=== PATIENT | female | born 1945 | race Caucasian/White ===

== ENCOUNTER 2020-04-28 12:42 | Outpatient (CLI) | payer MEDICARE | END 2020-04-28 12:43 | disposition critical access hospital (66) | LOC: EMS 12:42 | PROVIDERS: ATTEND Surgery | DX: M25.551 Pain in right hip (principal); R10.31 Right lower quadrant pain | CPT/HCPCS: A0425; A0427 ==

== ENCOUNTER 2020-04-28 13:20 | Emergency (ER) | payer MEDICARE ==
[2020-04-28] MEDS ORDERED: fentaNYL 100 MCG/2 ML VIAL IVP STA ×3 (13:59→17:58)
--- NOTE | 2020-04-28 14:00 | ED Physician Documentation ---
History of Present Illness - Stated complaint Stated Complaint: HIP PX - Chief complaint Chief Complaint: Ext Problem - History obtained from History obtained from: Patient - History of Present Illness Timing: Prior to arrival, How many hours ago (2) Pain level max: 10 Pain level now: 7 - Additonal information Additional information: 74-year-old female presents to the emergency department with chief complaint of right hip pain. Patient reports that she was ambulating to the bathroom with a walker as she was in the bathroom attempting to sit on the seat she twisted then felt a pop in her right hip and could not bear weight. She fell onto the toilet. She was unable to stand on her own or bear weight in the hip afterwards. Since the injury the hip has been held in external rotation.Patient reports that she has had bilateral hip replacements approximately 18 years ago.She also reports a history of severe osteoarthritis with "[id number] in the right knee." Review of Systems Constitutional: denies: Fever, Chills Cardiac: denies: Chest pain / pressure Respiratory: denies: Dyspnea : denies: Dysuria, Frequency, Hesitancy Skin: denies: Rash, Lesions Musculoskeletal: reports: Extremity pain, Joint pain, Pain with weight bearing PD PAST MEDICAL HISTORY - Allergies Allergies/Adverse Reactions: Allergies Allergy/AdvReac Type Severity Reaction Status Date / Time codeine Allergy Nausea Verified 04/28/20 13:28 Penicillins Allergy Rash Verified 04/28/20 13:28 PD ED PE EXPANDED - General General: No acute distress, Well developed/nourished, Other (morbidely obese) - Cardiac Cardiac: Regular Rate, Radial strong equal, Femoral strong equal - Respiratory Respiratory: Clear to ausultation [place] - Abdomen Abdomen: Normal Bowel sounds (No tenderness elicited) - Extremities Extremities: Right hip (Right hip held in external rotation. Patient is unable to elevate the leg at the hip internally rotate hip. She has normal dorsi and plantar flexion of the distal foot. 2+ distal DP pulse.) Results - Vitals Vitals: Vital Signs - 24 hr 04/28/20 04/28/20 04/28/20 13:28 13:34 15:49 Temperature 36.9 C 36.9 C 37.1 C Heart Rate 100 100 98 Respiratory 16 16 16 Rate Blood Pressure 160/80 H 160/80 H 173/88 H O2 Saturation 96 96 97 04/28/20 04/28/20 17:43 19:08 Temperature 36.9 C 36.9 C Heart Rate 103 H 99 Respiratory 16 20 Rate Blood Pressure 179/99 H 176/65 H O2 Saturation 96 98 Oxygen O2 Source Room air - Labs Labs: Laboratory Tests 04/28/20 04/28/20 04/28/20 14:48 14:48 17:00 WBC 9.6 RBC 3.52 L Hgb 9.9 L Hct 31.6 L MCV 89.8 MCH 28.1 MCHC 31.3 L RDW 14.9 Plt Count 339 MPV 9.6 Neut # (Auto) 7.7 H Lymph # (Auto) 0.9 L [place] # (Auto) 0.8 Eos # (Auto) 0.1 Baso # (Auto) 0.1 Absolute Nucleated RBC 0.00 Nucleated RBC % 0.0 Sodium 133 L Potassium 4.1 Chloride 99 L Carbon Dioxide 25 Anion Gap 9.0 BUN 16 Creatinine 0.7 Estimated GFR (MDRD) 82 L Glucose 109 H Calcium 9.1 Total Bilirubin 0.6 AST 14 ALT 13 Alkaline Phosphatase 75 Total Protein 6.5 L Albumin 3.5 Globulin 3.0 Albumin/Globulin Ratio 1.2 Lipase 28 Urine Color YELLOW Urine Clarity CLEAR Urine pH 6.0 Ur Specific [place] 1.010 Urine Protein NEGATIVE Urine Glucose (UA) NEGATIVE Urine Ketones NEGATIVE Urine Occult Blood NEGATIVE Urine Nitrite NEGATIVE Urine Bilirubin NEGATIVE Urine Urobilinogen 0.2 (NORMAL) Ur Leukocyte Esterase NEGATIVE Ur Microscopic Review NOT INDICATED Urine Culture Comments NOT INDICATED - Rads (name of study) Right hip/pelvis: Radiology: Final report received (No fractures or dislocations. Bilateral hip arthritis dual plasty procedures have been performed no evidence of device loosening or disruption. Source of new pain not found) CT abd/pelvis Radiology: Final report received (A definitive cause for right hip pain is not identified multiple small ventral hernias. No findings suggest obstructionDiverticulosis without diverticulitis. Right hepatic nodule) PD MEDICAL DECISION MAKING - ED course Complexity details: reviewed results, re-evaluated patient, considered di fferential, d/w patient, d/w family ED course: 74-year-old female presents to the emergency department with chief complaint of acute right hip pain after attempting to sit on a toilet. She felt a twisting sensation and a pop. She does have a history of previous bilateral hip replacement.She is unable to bear weight in the hip. - X-ray of the hip showed no dislocation or fracture. However despite multiple doses of pain medication and a muscle relaxer patient remained unable to internally rotate her hip or even elevate her leg. A CT scan of the abdomen and pelvis was performed in order to evaluate for possible occult's inguinal hernia or other incarceration. No etiology found. Therefore a full femur xray was completed which showed a distal right femur fracture. - Dr. Stoll of orthopedics has consulted. In his evaluation, [facility] does not have the capacity or ability to treat this type of fracture or manage in the [facility] as it is complicated and likely requires associated repair of the knee/osteoarthritis - Patient has been accepted for transfer to [facility] under the orthopedic service. Accepting physician is Dr. Josue Roy. - Pt will be send via [facility] given length of time for transport and need for cardiac monitoring and likely analgesia while enroute. - Consults Consults: Consulted (name) (Dr. Luis Stoll), Discussed case with (Dr. Cliff Stoll ) Departure - Departure Disposition: 66 [facility] DC/Xfer Clinical Impression: Femur fracture, right Qualifiers: Encounter type: initial encounter Femur location: distal, unspecified portion Fracture type: closed Fracture morphology: unspecified fracture morphology Qualified Code(s): S72.401A - Unspecified fracture of lower end of right femur, initial encounter for closed fracture Condition: Stable
--- NOTE | 2020-04-28 14:35 | XRAY Report ---
PROCEDURE: Hip w/Pelvis 2-3V RT INDICATIONS: PAIN IN HIP/ HELP IN EVERSION. FX VS DIS TECHNIQUE: AP pelvis with lateral view(s) of the bilateral hip(s). COMPARISON: None. FINDINGS: Bones: No fractures or dislocations. Note is made of bilateral hip arthroplasty devices without evid ence of device loosening or disruption. Pelvic ring appears intact. No suspicious bony lesions. Soft tissues: The visualized bowel gas pattern is normal. No suspicious soft tissue calcifications. IMPRESSION: No trauma found, bilateral hip arthroplasty procedures have been performed, no evidence of device loosening or disruption. Source of new pain is not found. Reviewed by: Sukhjinder Ritter MD on 04/28/2020 2:34 PM PDT Approved by: Sukhjinder Ritter MD on 04/28/2020 2:34 PM PDT Station ID: [id number]
[2020-04-28 14:55] LABS: BASOPHILS # (AUTO) 0.1 10^3/uL (0.0-0.1); BASOPHILS % (AUTO) 0.5 %; EOSINOPHILS # (AUTO) 0.1 10^3/uL (0.0-0.7); EOSINOPHILS % (AUTO) 1.1 %; HGB - HEMOGLOBIN 9.9 g/dL (12.0-16.0); LYMPHOCYTES # (AUTO) 0.9 10^3/uL (1.5-3.5); LYMPHOCYTES % (AUTO) 9.1 %; MEAN CORPUSCULAR HEMOGLOBIN 28.1 pg (27.0-31.0); MEAN CORPUSCULAR HGB CONC 31.3 g/dL (32.0-36.0); MEAN CORPUSCULAR VOLUME 89.8 fL (81.0-99.0); MEAN PLATELET VOLUME 9.6 fL (7.9-10.8); MONOCYTES # (AUTO) 0.8 10^3/uL (0.0-1.0); MONOCYTES % (AUTO) 8.6 %; NEUTROPHILS # (AUTO) 7.7 10^3/uL (1.5-6.6); NEUTROPHILS % (AUTO) 80.2 %; PLT - PLATELET COUNT 339 10^3/uL (130-450); RED BLOOD COUNT 3.52 10^6/uL (4.20-5.40); RED CELL DISTRIBUTION WIDTH 14.9 % (12.0-15.0); WHITE BLOOD COUNT 9.6 x10^3/uL (4.8-10.8)
[2020-04-28 15:07] LABS: ALBUMIN 3.5 g/dL (3.2-5.5); ALBUMIN/GLOBULIN RATIO 1.2 (1.0-2.2); BILIRUBIN,TOTAL 0.6 mg/dL (0.2-1.0); CALCIUM 9.1 mg/dL (8.5-10.3); CREATININE 0.7 mg/dL (0.4-1.0); TOTAL PROTEIN 6.5 g/dL (6.7-8.2)
[2020-04-28] MEDS ORDERED: IOVERSOL 320 100 ML VIAL IVP ONE ×2 (15:13→16:19)
--- NOTE | 2020-04-28 15:54 | CT Report ---
PROCEDURE: Abdomen/Pelvis W INDICATIONS: right hip pain; unable to bear weight; ? hernia CONTRAST: IV CONTRAST: Optiray 320 ml: 100 PO CONTRAST: *NO PO CONTRAST TECHNIQUE: After the administration of oral and intravenous contrast, 5 mm thick sections acquired from the diap hragms to the symphysis. 5 mm thick coronal and sagittal reformats were acquired. For radiation dos e reduction, the following was used: automated exposure control, adjustment of mA and/or kV accordin g to patient size. COMPARISON: None. FINDINGS: Image quality: Excellent. ABDOMEN: Lung bases: Lung bases are clear. Heart size is normal. Solid organs: There is a 1.5 x 1.7 cm low-density nodule in the posterior segment of the right hepat ic lobe. Liver and spleen are normal in size and enhancement. Gallbladder is surgically absent Bili sabas system is non dilated. Pancreas enhances normally. No adrenal nodules. Kidneys demonstrate nor mal size and enhancement, without hydronephrosis. Peritoneum and bowel: There are multiple surgical clips in the left upper quadrant. There are [place] us colonic diverticula. No CT findings to suggest acute diverticulitis. Normal appendix. A moderate a mount of stool in colon. Bowel loops demonstrate normal wall thickness and caliber. No free fluid or air. Nodes and vessels: No retroperitoneal or mesenteric adenopathy by size criteria. Aorta and inferior vena cava are normal in size. Miscellaneous: There are a couple of small ventral hernias. PELVIS: Pelvis is partially obscured by metallic artifacts from bilateral hip prosthesis. Genitourinary: Bladder wall thickness is normal. Bilateral ovarian cysts. There is a 4 cm cyst in t he left ovary and a 3 cm cyst in the right ovary. Miscellaneous: No inguinal hernias or adenopathy. Bones: No suspicious bony lesions. No vertebral body compression fractures. Mild scoliosis. Severe degenerative disc and facet disease in lumbar spine. IMPRESSION: 1. Small ventral hernias. No findings to suggest bowel obstruction. 2. Diverticulosis without acute diverticulitis. 3. A 1.5 x 1.7 cm indeterminate low density nodule in the posterior segment of the right hepatic lobe . An ultrasound is suggested as initial follow-up evaluation. 4. Bilateral ovarian cysts. Follow-up pelvic ultrasound is suggested. 5. Pelvises partially obscured by external metallic artifacts from bilateral hip procedures. 6. A definitive cause for right hip pain is not identified on this CT. 7. Severe degenerative changes in lumbar spine. Reviewed by: Dorcas Vasquez MD on 04/28/2020 3:53 PM PDT Approved by: Dorcas Vasquez MD on 04/28/2020 3:53 PM PDT Station ID: [id number]
[2020-04-28] MEDS ORDERED: diazePAM INJ 5 MG/ML SYRINGE IM STA (15:56)
[2020-04-28] MEDS ORDERED: diazePAM INJ 5 MG/ML SYRINGE IVP STA (16:09)
[2020-04-28 17:17] LABS: BILIRUBIN,URINE NEGATIVE (NEGATIVE); CLARITY,URINE CLEAR (CLEAR); GLUCOSE, URINE (UA) NEGATIVE (NEGATIVE); KETONES,URINE (UA) NEGATIVE (NEGATIVE); LEUKOCYTE ESTERASE, URINE NEGATIVE (NEGATIVE); NITRITE,URINE NEGATIVE (NEGATIVE); OCCULT BLOOD,URINE NEGATIVE (NEGATIVE); PROTEIN,URINE NEGATIVE (NEGATIVE); UROBILINOGEN,URINE 0.2 (NORMAL) E.U./dL (NORMAL)
--- NOTE | 2020-04-28 18:17 | CONSULTATION NOTE ---
Referring Provider Name of Referring Provider:: AIDE cam Consult Date: 04/28/20 Chief Complaint - Chief Complaint Chief Complaint: pain right upper and lower thigh following fall earlier today History of Present Illness - History Obtained From History obtained from: patient - History of Present Illness HPI Comment/Other: This is a 74-year-old woman who presents with right thigh pain on an acute basis following a fall at home earlier today. She normally uses a walker to ambulate. She went to the bathroom and when attempting to sit her right knee twisted and she fell hard onto the toilet seat. She felt a pop, had immediate pain and was unable to bear weight on her right leg. Most of the pain was in the upper thigh initially but then she had also considerable pain in the distal thigh on the right side. She has a history of bilateral total hip arthroplasties performed approximately 18 years ago. She has had a good outcome with regard to the hip arthroplasties. Most of her problems are related to severe osteoarthritis of both knees. She has difficulty ambulating because of the knee pain that is chronic. Her legs feel weak and she is limited to ambulation to indoors only at home and uses a walker on a full-time basis. She also has a history of obesity. She denies chest pain, shortness of breath, dizziness or loss of consciousness associated with the fall onto the toilet.She denies any pain to the left lower extremity from the fall but does have chronic pain to the left knee as mentioned. She denies upper extremity pain. Meds/Allgy - Allergies Allergies/Adverse Reactions: Allergies Allergy/AdvReac Type Severity Reaction Status Date / Time codeine Allergy Nausea Verified 04/28/20 13:28 Penicillins Allergy Rash Verified 04/28/20 13:28 Review of Systems - All Other Systems All Other Systems: reports: Other (See history of present illness) Exam - Vital Signs Vital Signs: Vital Signs x48h Temp Pulse Resp BP Pulse Ox 04/28/20 17:43 36.9 C 103 H 16 179/99 H 96 04/28/20 15:49 37.1 C 98 16 173/88 H 97 04/28/20 13:34 36.9 C 100 16 160/80 H 96 04/28/20 13:28 36.9 C 100 16 160/80 H 96 - Physical Exam General Appearance: positive: Moderate distress Eyes Bilateral: positive: Normal inspection ENT: positive: ENT inspection nml Neck: positive: Nml inspection Respiratory: positive: Chest non-tender Cardiovascular: positive: Regular rate & rhythm Peripheral Pulses: negative: Other (No vascular compromise to lower extremities) Skin: positive: Color nml, Dry, Other (Skin is intact) Extremities: positive: Other Neurologic/Psychiatric: negative: Other (There is swelling and tenderness to the right distal thigh. Any movement of the right knee is associated with marked pain. Gentle movement of the right hip does not seem to be associated with pain. She presents with morbid obesity, no overt deformity but she does hold the right lower extremity wi) Conclusion and Plan - Lab Results Laboratory Results 04/28/20 17:00: Urine Color YELLOW, Urine Clarity CLEAR, Urine pH 6.0, Ur Specific [place] 1.010, Urine Protein NEGATIVE, Urine Glucose (UA) NEGATIVE, Urine Ketones NEGATIVE, Urine Occult Blood NEGATIVE, Urine Nitrite NEGATIVE, Urine Bilirubin NEGATIVE, Urine Urobilinogen 0.2 (NORMAL), Ur Leukocyte Esterase NEGATIVE, Ur Microscopic Review NOT INDICATED, Urine Culture Comments NOT INDICATED 04/28/20 14:48: Sodium 133 L, Potassium 4.1, Chloride 99 L, Carbon Dioxide 25, Anion Gap 9.0, BUN 16, Creatinine 0.7, Estimated GFR (MDRD) 82 L, Glucose 109 H, Calcium 9.1, Total Bilirubin 0.6, AST 14, ALT 13, Alkaline Phosphatase 75, Total Protein 6.5 L, Albumin 3.5, Globulin 3.0, Albumin/Globulin Ratio 1.2, Lipase 28 04/28/20 14:48: WBC 9.6, RBC 3.52 L, Hgb 9.9 L, Hct 31.6 L, MCV 89.8, MCH 28.1, MCHC 31.3 L, RDW 14.9, Plt Count 339, MPV 9.6, Neut # (Auto) 7.7 H, Lymph # (Auto) 0.9 L, [place] # (Auto) 0.8, Eos # (Auto) 0.1, Baso # (Auto) 0.1, Absolute Nucleated RBC 0.00, Nucleated RBC % 0.0 - Diagnostic Imaging Results Diagnostic Imaging Results: negative: Read independently (The distal femur shows a transverse fracture, supracondylar with the distal fracture fragment angulated in a dorsal direction. The fracture appears to be extra-articular. There is osteopenia. The lateral tibial plateau is depressed and there are degenerative changes to the right knee joint.) - Diagnosis Diagnosis: I have suggested obtaining a CT scan of the right knee to better delineate the fracture and possible fracture to tibial plateau. Because this is a periprosthetic type of fracture, I feel she would best be treated at a tertiary care center as she may need a combination of trauma and reconstructive services including possibility of a total knee replacement and fracture fixation in 1 procedure. Her obesity and osteopenia add additional challenges. I have explained this to the patient and her accompanying family member; they are agreement to being transferred. We are in the process of trying to reach 1 of the major medical centers in the [place] to accept her as a patient.1. Displaced supracondylar right femur fracture, periprosthetic 2. Bilateral total hip arthroplasties 3. Severe osteoarthritis bilateral knees 4. Cannot fully exclude a tibial plateau fracture but I suspect deformity may be due to advanced osteoarthritis of the knee. 5 morbid obesity 6. Debility from age and disuse 7 osteoporosis
--- NOTE | 2020-04-28 18:30 | CONSULTATION NOTE ---
Referring Provider Name of Referring Provider:: AIDE rivers Consult Date: 04/28/20 Meds/Allgy - Allergies Allergies/Adverse Reactions: Allergies Allergy/AdvReac Type Severity Reaction Status Date / Time codeine Allergy Nausea Verified 04/28/20 13:28 Penicillins Allergy Rash Verified 04/28/20 13:28 Exam - Vital Signs Vital Signs: Vital Signs x48h Temp Pulse Resp BP Pulse Ox 04/28/20 17:43 36.9 C 103 H 16 179/99 H 96 04/28/20 15:49 37.1 C 98 16 173/88 H 97 04/28/20 13:34 36.9 C 100 16 160/80 H 96 04/28/20 13:28 36.9 C 100 16 160/80 H 96 Conclusion and Plan - Lab Results Laboratory Results 04/28/20 17:00: Urine Color YELLOW, Urine Clarity CLEAR, Urine pH 6.0, Ur Specific [place] 1.010, Urine Protein NEGATIVE, Urine Glucose (UA) NEGATIVE, Urine Ketones NEGATIVE, Urine Occult Blood NEGATIVE, Urine Nitrite NEGATIVE, Urine Bilirubin NEGATIVE, Urine Urobilinogen 0.2 (NORMAL), Ur Leukocyte Esterase NEGATIVE, Ur Microscopic Review NOT INDICATED, Urine Culture Comments NOT INDICATED 04/28/20 14:48: Sodium 133 L, Potassium 4.1, Chloride 99 L, Carbon Dioxide 25, Anion Gap 9.0, BUN 16, Creatinine 0.7, Estimated GFR (MDRD) 82 L, Glucose 109 H, Calcium 9.1, Total Bilirubin 0.6, AST 14, ALT 13, Alkaline Phosphatase 75, Total Protein 6.5 L, Albumin 3.5, Globulin 3.0, Albumin/Globulin Ratio 1.2, Lipase 28 04/28/20 14:48: WBC 9.6, RBC 3.52 L, Hgb 9.9 L, Hct 31.6 L, MCV 89.8, MCH 28.1, MCHC 31.3 L, RDW 14.9, Plt Count 339, MPV 9.6, Neut # (Auto) 7.7 H, Lymph # (Auto) 0.9 L, [place] # (Auto) 0.8, Eos # (Auto) 0.1, Baso # (Auto) 0.1, Absolute Nucleated RBC 0.00, Nucleated RBC % 0.0
--- NOTE | 2020-04-28 18:37 | XRAY Report ---
PROCEDURE: Femur 2V RT INDICATIONS: r/o fx TECHNIQUE: 4 views of the femur were acquired. COMPARISON: Hip with pelvis same day.. FINDINGS: Bones: No fractures or dislocations superiorly where a femoral arthroplasty is partially visualized and appears intact. More distally at the distal femoral metadiaphyseal junction there is a transverse fracture with fracture angulation ventrally associated with a large suprapatellar joint effusion and this appears acute. Mild comminution. Moderately severe knee joint osteoarthritis is present.. No s uspicious bony lesions. Soft tissues: No suspicious soft tissue calcifications or masses. IMPRESSION: Distal femoral metadiaphyseal junction fracture angulation is present, significantly ventrally angula nichelle with associated large effusion at the suprapatellar bursal space. Reviewed by: Sukhjinder Ritter MD on 04/28/2020 6:35 PM PDT Approved by: Sukhjinder Ritter MD on 04/28/2020 6:35 PM PDT Station ID: [id number]
--- NOTE | 2020-04-28 18:39 | XRAY Report ---
PROCEDURE: Knee 2 View RT INDICATIONS: fracture TECHNIQUE: 2 views of the right knee(s) were acquired. COMPARISON: Right femur plain film same day.. FINDINGS: Bones: No dislocations but there is a ventrally angulated distal right femoral metadiaphyseal junct ion fracture, with associated large ventral joint effusion, and on the frontal view quality of visual ization is quite limited by large body habitus. At least degenerative osteoarthritis of the knee join t is present, near severe medially, and it is not possible to accurately exclude presence of a tibial plateau fracture. No suspicious bony lesions. Soft tissues: No joint effusion. No suspicious soft tissue calcifications. IMPRESSION: Limited quality visualization of the knee joint on the frontal projection, moderately se booker knee joint osteoarthritis is present and a fracture cannot be excluded at the tibial plateau by this study due to very large body habitus. CT scanning may be warranted through this area depending o n the clinical status. Reviewed by: Sukhjinder Ritter MD on 04/28/2020 6:37 PM PDT Approved by: Sukhjinder Ritter MD on 04/28/2020 6:37 PM PDT Station ID: [id number]
[2020-04-28 19:08] VITALS: BP 176/65
[2020-04-28] MEDS ORDERED: fentaNYL 100 MCG/2 ML VIAL IVP PRN (19:20)
--- NOTE | 2020-04-28 19:22 | CT Report ---
PROCEDURE: LOWER EXTREMITY WO - RT INDICATIONS: CT knee: eval tib/fib fx TECHNIQUE: Noncontrast 3 mm axial sections acquired of the , with coronal and sagittal reformats. COMPARISON: Plain film imaging earlier same day documenting distal femoral fracture reviewed.. FINDINGS: Image quality: Excellent. Bones: The previously identified displaced and angulated metadiaphyseal junction fracture involving the distal femur on the right is again noted. The anterior joint effusion associated with this and se en on plain film imaging appears to contain fluid higher in density than water, consistent with hemor rhagic effusion in the setting of trauma. The knee joint shows moderately severe to severe osteoarthr itis best seen at the medial compartment, where near [id number] articulation is present. A tibial p lateau fracture is not found. Soft tissues: No hematoma seen. Presumed hemarthrosis suprapatellar bursa on the right. IMPRESSION: No tibial plateau fracture seen. Moderately severe knee joint osteoarthritis slightly greater at the medial compartment and the lateral compartment. Distal femoral metadiaphyseal junction fracture angul ated and mildly just placed is noted, as was seen on plain film imaging earlier today. Reviewed by: Sukhjinder Ritter MD on 04/28/2020 7:20 PM PDT Approved by: Sukhjinder Ritter MD on 04/28/2020 7:20 PM PDT Station ID: [id number]
== END 2020-04-28 20:24 | disposition short-term general hospital (02) ==
LOC: ED 13:20
DX: S72.451A Displaced supracondylar fracture without intracondylar extension of lower end of right femur, initial encounter for closed fracture (principal); M97.01XA Periprosthetic fracture around internal prosthetic right hip joint, initial encounter; X50.1XXA Overexertion from prolonged static or awkward postures, initial encounter; Y93.E8 Activity, other personal hygiene; Y92.002 Bathroom of unspecified non-institutional (private) residence as the place of occurrence of the external cause; Z96.643 Presence of artificial hip joint, bilateral; M17.0 Bilateral primary osteoarthritis of knee; M81.0 Age-related osteoporosis without current pathological fracture; M51.36 Other intervertebral disc degeneration, lumbar region; E66.01 Morbid (severe) obesity due to excess calories; Z68.41 Body mass index [BMI] 40.0-44.9, adult; K43.9 Ventral hernia without obstruction or gangrene
CPT/HCPCS: 36415; 73502; 73552; 73560; 73700; 74177; 80053; 81003; 83690; 85025; 96374; 96375; 96376; 99284; 99285; Q9967; 81001; 87086

== ENCOUNTER 2020-04-28 20:30 | Outpatient (CLI) | payer MEDICARE | END 2020-04-28 20:31 | disposition short-term general hospital (02) | LOC: EMS 20:30 | PROVIDERS: ATTEND Surgery | DX: S72.401A Unspecified fracture of lower end of right femur, initial encounter for closed fracture (principal); X50.9XXA Other and unspecified overexertion or strenuous movements or postures, initial encounter; Z96.643 Presence of artificial hip joint, bilateral | CPT/HCPCS: A0425; A0426 ==

== ENCOUNTER 2021-11-29 12:28 | Outpatient (CLI) | payer MEDICARE ==
[2021-11-29 12:36] LABS: BASOPHILS % (AUTO) 0.3 %; EOSINOPHILS # (AUTO) 0.3 10^3/uL (0.0-0.7); HCT - HEMATOCRIT 37.1 % (37.0-47.0); HGB - HEMOGLOBIN 11.8 g/dL (12.0-16.0); LYMPHOCYTES # (AUTO) 1.1 10^3/uL (1.5-3.5); LYMPHOCYTES % (AUTO) 15.1 %; MEAN CORPUSCULAR HEMOGLOBIN 29.3 pg (27.0-31.0); MEAN CORPUSCULAR HGB CONC 31.8 g/dL (32.0-36.0); MEAN CORPUSCULAR VOLUME 92.1 fL (81.0-99.0); MEAN PLATELET VOLUME 10.6 fL (7.9-10.8); MONOCYTES # (AUTO) 0.6 10^3/uL (0.0-1.0); MONOCYTES % (AUTO) 9.1 %; NEUTROPHILS # (AUTO) 4.9 10^3/uL (1.5-6.6); NEUTROPHILS % (AUTO) 71.2 %; PLT - PLATELET COUNT 300 10^3/uL (130-450); RED BLOOD COUNT 4.03 10^6/uL (4.20-5.40); RED CELL DISTRIBUTION WIDTH 16.5 % (12.0-15.0); WHITE BLOOD COUNT 6.9 x10^3/uL (4.8-10.8)
[2021-11-29 12:53] LABS: ALBUMIN/GLOBULIN RATIO 0.9 (1.0-2.2); BILIRUBIN,TOTAL 0.7 mg/dL (0.2-1.0); CALCIUM 9.1 mg/dL (8.5-10.3); CREATININE 0.8 mg/dL (0.4-1.0); POTASSIUM 4.1 mmol/L (3.5-5.0); TOTAL PROTEIN 6.2 g/dL (6.7-8.2)
== END 2021-11-29 12:29 | disposition home or self-care (01) ==
LOC: LAB.R 12:28
DX: E83.42 Hypomagnesemia (principal); R63.4 Abnormal weight loss; E78.5 Hyperlipidemia, unspecified; I10 Essential (primary) hypertension; D50.9 Iron deficiency anemia, unspecified
CPT/HCPCS: 80053; 85025

== ENCOUNTER 2022-02-09 11:21 | Outpatient (CLI) | payer MEDICARE ==
[2022-02-09 11:32] LABS: BASOPHILS % (AUTO) 0.3 %; EOSINOPHILS # (AUTO) 0.2 10^3/uL (0.0-0.7); EOSINOPHILS % (AUTO) 2.6 %; HCT - HEMATOCRIT 35.6 % (37.0-47.0); HGB - HEMOGLOBIN 11.3 g/dL (12.0-16.0); LYMPHOCYTES # (AUTO) 1.2 10^3/uL (1.5-3.5); LYMPHOCYTES % (AUTO) 19.1 %; MEAN CORPUSCULAR HEMOGLOBIN 29.8 pg (27.0-31.0); MEAN CORPUSCULAR HGB CONC 31.7 g/dL (32.0-36.0); MEAN CORPUSCULAR VOLUME 93.9 fL (81.0-99.0); MEAN PLATELET VOLUME 10.5 fL (7.9-10.8); MONOCYTES # (AUTO) 0.5 10^3/uL (0.0-1.0); MONOCYTES % (AUTO) 8.5 %; NEUTROPHILS # (AUTO) 4.3 10^3/uL (1.5-6.6); NEUTROPHILS % (AUTO) 69.3 %; PLT - PLATELET COUNT 301 10^3/uL (130-450); RED BLOOD COUNT 3.79 10^6/uL (4.20-5.40); RED CELL DISTRIBUTION WIDTH 14.6 % (12.0-15.0); WHITE BLOOD COUNT 6.1 x10^3/uL (4.8-10.8)
[2022-02-09 11:50] LABS: ALBUMIN 3.2 g/dL (3.2-5.5); BILIRUBIN,TOTAL 0.6 mg/dL (0.2-1.0); CREATININE 0.6 mg/dL (0.4-1.0); PHOSPHORUS 3.4 mg/dL (2.5-4.6); POTASSIUM 3.8 mmol/L (3.5-5.0); TOTAL PROTEIN 6.4 g/dL (6.7-8.2)
== END 2022-02-09 11:22 | disposition home or self-care (01) ==
LOC: LAB.R 11:21
PROVIDERS: ATTEND Hospitalist
DX: E66.01 Morbid (severe) obesity due to excess calories (principal); E83.42 Hypomagnesemia; M62.81 Muscle weakness (generalized)
CPT/HCPCS: 80053; 83735; 84100; 85025

== ENCOUNTER 2022-04-23 08:00 | Outpatient (CLI) | payer MEDICARE ==
[2022-04-23 21:32] LABS: BASOPHILS % (AUTO) 0.3 %; EOSINOPHILS # (AUTO) 0.2 10^3/uL (0.0-0.7); EOSINOPHILS % (AUTO) 2.3 %; LYMPHOCYTES # (AUTO) 1.1 10^3/uL (1.5-3.5); LYMPHOCYTES % (AUTO) 13.8 %; MEAN CORPUSCULAR HGB CONC 30.5 g/dL (32.0-36.0); MEAN CORPUSCULAR VOLUME 101.6 fL (81.0-99.0); MEAN PLATELET VOLUME 9.8 fL (7.9-10.8); MONOCYTES # (AUTO) 0.9 10^3/uL (0.0-1.0); MONOCYTES % (AUTO) 11.4 %; NEUTROPHILS # (AUTO) 5.6 10^3/uL (1.5-6.6); NEUTROPHILS % (AUTO) 71.7 %; PLT - PLATELET COUNT 383 10^3/uL (130-450); RED BLOOD COUNT 1.84 10^6/uL (4.20-5.40); RED CELL DISTRIBUTION WIDTH 15.9 % (12.0-15.0); WHITE BLOOD COUNT 7.8 x10^3/uL (4.8-10.8)
[2022-04-23 21:38] LABS: HCT - HEMATOCRIT 18.7 % (37.0-47.0); HGB - HEMOGLOBIN 5.7 g/dL (12.0-16.0)
[2022-04-23 21:44] LABS: ALBUMIN 3.1 g/dL (3.2-5.5); ALBUMIN/GLOBULIN RATIO 1.1 (1.0-2.2); BILIRUBIN,TOTAL 0.5 mg/dL (0.2-1.0); CALCIUM 8.8 mg/dL (8.5-10.3); CREATININE 0.9 mg/dL (0.4-1.0); MAGNESIUM 2.2 mg/dL (1.7-2.8); POTASSIUM 3.8 mmol/L (3.5-5.0); TOTAL PROTEIN 5.8 g/dL (6.7-8.2)
[2022-04-23 22:01] LABS: THYROID STIMULATING HORMONE 3.51 uIU/mL (0.34-5.60)
== END 2022-04-23 23:59 | disposition home or self-care (01) ==
LOC: LAB.R 08:00
PROVIDERS: ATTEND Hospitalist
DX: M62.81 Muscle weakness (generalized) (principal); F41.9 Anxiety disorder, unspecified; G62.9 Polyneuropathy, unspecified; E66.01 Morbid (severe) obesity due to excess calories; D50.9 Iron deficiency anemia, unspecified; E83.42 Hypomagnesemia
CPT/HCPCS: 80053; 82607; 83735; 84443; 85025

== ENCOUNTER 2022-04-24 08:28 | Emergency (ER) | payer MEDICARE ==
--- NOTE | 2022-04-24 08:35 | ED Physician Documentation ---
PD HPI ALTERED MENTAL STATUS - Stated complaint Stated Complaint: HALLUCINATIONS - History obtained from History obtained from: Patient PD PAST MEDICAL HISTORY - Allergies Allergies/Adverse Reactions: Allergies Allergy/AdvReac Type Severity Reaction Status Date / Time codeine Allergy Nausea Verified 04/28/20 13:28 Penicillins Allergy Rash Verified 04/28/20 13:28 Results - Vitals Vitals: Oxygen O2 Source Room air
--- NOTE | 2022-04-24 09:15 | ED Physician Documentation ---
PD HPI DYSPNEA - Stated complaint Stated Complaint: HALLUCINATIONS - Chief complaint Chief Complaint: Neuro - History obtained from History obtained from: Patient, EMS, Caregiver - History of Present Illness Timing - onset: How many days ago (several days to week or more of progressive dyspnea, fatigue, weakness generally.) Timing - onset during: Rest (The patient is largely bedbound due to knee arthritis and leg weakness. She does get lifted to a chair during the day. She has had 4 to 5 days of progressive weakness and dyspnea. Loose stool several days ago. She has not sure if it was bloody or melanotic. [facility] staffing notes do not specify) Timing - duration: Days (The patient had blood test done yesterday drawn there at [facility] with results showing blood count hemoglobin 5.6. Referred to the ER for evaluation.) Timing - details: Gradual onset Inciting event(s): Immobilization/travel. No: URI Improved by: No: Rest Worsened by: Exertion. No: Laying flat, Coughing Associated symptoms: Other (loose stools past few days, unknown if melena/bloody, as patient gets Depends changed by staff and does not see stool.). No: Fever, Cough Recently seen: Not recently seen Review of Systems Constitutional: denies: Fever Nose: denies: Rhinorrhea / runny nose, Congestion Throat: denies: Sore throat Respiratory: denies: Cough GI: reports: Diarrhea (loose stools few days ago. Denies any BMs today.). denies: Abdominal Pain, Nausea, Vomiting : reports: Incontinent Skin: denies: Rash Neurologic: reports: Generalized weakness. denies: Syncope PD PAST MEDICAL HISTORY - Past Medical History Cardiovascular: Hypertension Respiratory: None Neuro: Dementia Endocrine/Autoimmune: None - Present Medications Home Medications: Ambulatory Orders Medication Instructions Recorded Confirmed Acetaminophen [Tylenol] 650 mg PO BID 04/24/22 04/24/22 Albuterol Sulf [Ventolin Hfa 2 puffs INH Q6HR PRN 04/24/22 04/24/22 Inhaler] Bisacodyl Supp [Dulcolax Supp] 10 mg TX PRN PRN 04/24/22 04/24/22 Cholecalciferol [Vitamin D3] 25 mcg PO DAILY 04/24/22 04/24/22 Citalopram Hydrobromide [Celexa] 20 mg PO DAILY 04/24/22 04/24/22 Cyanocobalamin (Vitamin B-12) 1,000 mcg PO DAILY 04/24/22 04/24/22 [Vitamin B-12] Docusate Sodium 100Mg Capsule 100 mg PO BID 04/24/22 04/24/22 [Colace 100Mg Capsule] Duloxetine HCl [Cymbalta] 20 mg PO BID 04/24/22 04/24/22 Famotidine [Pepcid] 20 mg PO DAILY 04/24/22 04/24/22 Fexofenadine HCl [Allergy Relief] 60 mg PO BID 04/24/22 04/24/22 Fluticasone Furoate [Arnuity 1 puffs IH DAILY 04/24/22 04/24/22 Ellipta] Furosemide [Lasix] 80 mg PO DAILY 04/24/22 04/24/22 HYDROcod/ACETAM 5/325 [[place] 5/325] 2 tab PO DAILY 04/24/22 04/24/22 HYDROcod/ACETAM 5/325 [[place] 5/325] 2 tab PO DAILY PRN 04/24/22 04/24/22 Hydrocortisone 1% Cream 1 applic TOP Q6HR PRN 04/24/22 04/24/22 [Hydrocortisone] LORazepam [Ativan] 0.5 mg PO BID 04/24/22 04/24/22 LORazepam [Ativan] 0.5 mg PO DAILY PRN 04/24/22 04/24/22 Magnesium Oxide 400 mg PO BID 04/24/22 04/24/22 Menthol [Biofreeze] 473 ml TP BID 04/24/22 04/24/22 Metoprolol Succinate [Toprol Xl] 25 mg PO DAILY 04/24/22 04/24/22 Mineral Oil [Mineral Oil Enema] 1 ea RC PRN PRN 04/24/22 04/24/22 Montelukast Sodium 10 mg PO DAILY PM 04/24/22 04/24/22 Naproxen [Naprosyn] 250 mg PO BID 04/24/22 04/24/22 Nystatin Cream [Mycostatin Cream] 1 applic TOP BID PRN 04/24/22 04/24/22 Nystatin Cream [Mycostatin Cream] 1 applic TOP Q6H PRN 04/24/22 04/24/22 Pnv No.121/Iron/Folic Acid 1 each PO DAILY 04/24/22 04/24/22 [ Multivitamin Tablet] Potassium Chloride [Klor-Con M20] 20 meq PO DAILY 04/24/22 04/24/22 Rivaroxaban [Xarelto] 1 tablet PO DAILY PM 04/24/22 04/24/22 Senna [Senokot] 2 tab PO PRN PRN 04/24/22 04/24/22 polyethylene glycoL 3350 [Miralax] 17 gm PO PRN PRN 04/24/22 04/24/22 - Allergies Allergies/Adverse Reactions: Allergies Allergy/AdvReac Type Severity Reaction Status Date / Time codeine Allergy Nausea Verified 04/24/22 08:45 Penicillins Allergy Rash Verified 04/24/22 08:45 - Living Situation Living Situation: reports: Alone Living Arrangement: reports: [facility] - Social History Does the pt smoke?: No Smoking Status: Never smoker PD ED PE NORMAL - Vitals Vital signs reviewed: Yes - General General: No acute distress, Well developed/nourished. No: Alert and oriented X 3 (oriented to person and place. ) - HEENT HEENT: Atraumatic, Pharynx benign - Neck Neck: Supple, no meningeal sign, No adenopathy - Cardiac Cardiac: No murmur. No: RRR (irregular but normal rate. ) - Respiratory Respiratory: No respiratory distress, Clear bilaterally - Abdomen Abdomen: Normal bowel sounds, Soft, Non tender, Non distended, No organomegaly - Female Female : Deferred - Rectal Rectal: Other (soft stool in vault, dark brown to black color. Appears melenotic. ) - Back Back: No CVA TTP - Derm Derm: Warm and dry. No: Normal color (pale) - Extremities Extremities: No edema, No calf tenderness / cord - Neuro Neuro: No motor deficit, No sensory deficit, Normal speech Results - Vitals Vitals: Vital Signs - 24 hr 04/24/22 04/24/22 04/24/22 08:30 09:30 11:00 Temperature 37.4 C Heart Rate 97 94 118 H Respiratory 19 18 18 Rate Blood Pressure 128/60 140/75 H O2 Saturation 99 99 97 04/24/22 04/24/22 04/24/22 13:00 13:59 14:11 Temperature 37.5 C 37.2 C Heart Rate 85 103 H 96 Respiratory 15 13 16 Rate Blood Pressure 110/60 115/59 L 128/55 L O2 Saturation 97 04/24/22 04/24/22 04/24/22 14:22 14:45 15:41 Temperature 37.1 C 36.9 C Heart Rate 104 H 96 78 Respiratory 16 14 16 Rate Blood Pressure 117/57 L 115/58 L 103/52 L O2 Saturation 95 04/24/22 04/24/22 04/24/22 16:00 16:26 16:35 Temperature 36.7 C 36.6 C Heart Rate 87 92 86 Respiratory 14 16 12 Rate Blood Pressure 94/45 L 87/53 L 101/48 L O2 Saturation 93 04/24/22 16:45 Temperature 36.9 C Heart Rate 94 Respiratory 18 Rate Blood Pressure 106/58 L O2 Saturation Oxygen O2 Source Room air - Labs Labs: Microbiology 04/24/22 10:55 Occult Blood - Final Stool Laboratory Tests 04/24/22 04/24/22 04/24/22 09:45 09:45 09:45 WBC 7.0 RBC 1.69 L Hgb 5.3 L* Hct 17.1 L* MCV 101.2 H MCH 31.4 H MCHC 31.0 L RDW 15.9 H Plt Count 341 MPV 9.8 Neut # (Auto) 5.1 Lymph # (Auto) 0.8 L [place] # (Auto) 0.8 Eos # (Auto) 0.2 Baso # (Auto) 0.0 Absolute Nucleated RBC 0.03 Nucleated RBC % 0.4 PT INR APTT Sodium 134 L Potassium 3.7 Chloride 98 L Carbon Dioxide 28 Anion Gap 8.0 BUN 34 H Creatinine 0.8 Estimated GFR (MDRD) 70 L Glucose 114 H Calcium 8.5 Magnesium 2.4 Iron 28 TIBC 384 % Saturation 7 L Transferrin 274 Total Bilirubin 0.4 AST 14 ALT 14 Alkaline Phosphatase 48 B-Natriuretic Peptide Total Protein 5.6 L Albumin 3.0 L Globulin 2.6 Albumin/Globulin Ratio 1.2 Lipase 18 L Vitamin B12 910 Folate 32.00 Nasal Adenovirus (PCR) Nasal B. parapertussis DNA (PCR) Nasal Coronavir 229E PCR Nasal Coronavir HKU1 PCR Nasal Coronavir NL63 PCR Nasal Coronavir OC43 PCR Nasal Enterovir/Rhinovir PCR Nasal Influenza B PCR Nasal Influenza A PCR Nasal Parainfluen 1 PCR Nasal Parainfluen 2 PCR Nasal Parainfluen 3 PCR Nasal Parainfluen 4 PCR Nasal RSV (PCR) Nasal B.pertussis DNA PCR Nasal C.pneumoniae (PCR) Juan Human Metapneumo PCR Nasal M.pneumoniae (PCR) Nasal SARS-CoV-2 (PCR) Blood Type Blood Type Recheck Antibody Screen Crossmatch IS Only 04/24/22 04/24/22 04/24/22 09:45 09:45 10:11 WBC RBC Hgb Hct MCV MCH MCHC RDW Plt Count MPV Neut # (Auto) Lymph # (Auto) [place] # (Auto) Eos # (Auto) Baso # (Auto) Absolute Nucleated RBC Nucleated RBC % PT INR APTT Sodium Potassium Chloride Carbon Dioxide Anion Gap BUN Creatinine Estimated GFR (MDRD) Glucose Calcium Magnesium Iron TIBC % Saturation Transferrin Total Bilirubin AST ALT Alkaline Phosphatase B-Natriuretic Peptide 67 Total Protein Albumin Globulin Albumin/Globulin Ratio Lipase Vitamin B12 Folate Nasal Adenovirus (PCR) Nasal B. parapertussis DNA (PCR) Nasal Coronavir 229E PCR Nasal Coronavir HKU1 PCR Nasal Coronavir NL63 PCR Nasal Coronavir OC43 PCR Nasal Enterovir/Rhinovir PCR Nasal Influenza B PCR Nasal Influenza A PCR Nasal Parainfluen 1 PCR Nasal Parainfluen 2 PCR Nasal Parainfluen 3 PCR Nasal Parainfluen 4 PCR Nasal RSV (PCR) Nasal B.pertussis DNA PCR Nasal C.pneumoniae (PCR) Juan Human Metapneumo PCR Nasal M.pneumoniae (PCR) Nasal SARS-CoV-2 (PCR) Blood Type A POSITIVE Blood Type Recheck A POSITIVE Antibody Screen NEGATIVE Crossmatch IS Only See Detail 04/24/22 04/24/22 04/24/22 12:13 15:55 16:29 WBC RBC Hgb 5.5 L* Hct 18.0 L* MCV MCH MCHC RDW Plt Count MPV Neut # (Auto) Lymph # (Auto) [place] # (Auto) Eos # (Auto) Baso # (Auto) Absolute Nucleated RBC Nucleated RBC % PT 14.1 H INR 1.3 H APTT 32.6 Sodium Potassium Chloride Carbon Dioxide Anion Gap BUN Creatinine Estimated GFR (MDRD) Glucose Calcium Magnesium Iron TIBC % Saturation Transferrin Total Bilirubin AST ALT Alkaline Phosphatase B-Natriuretic Peptide Total Protein Albumin Globulin Albumin/Globulin Ratio Lipase Vitamin B12 Folate Nasal Adenovirus (PCR) NOT DETECTED Nasal B. parapertussis DNA (PCR) NOT DETECTED Nasal Coronavir 229E PCR NOT DETECTED Nasal Coronavir HKU1 PCR NOT DETECTED Nasal Coronavir NL63 PCR NOT DETECTED Nasal Coronavir OC43 PCR NOT DETECTED Nasal Enterovir/Rhinovir PCR DETECTED A Nasal Influenza B PCR NOT DETECTED Nasal Influenza A PCR NOT DETECTED Nasal Parainfluen 1 PCR NOT DETECTED Nasal Parainfluen 2 PCR NOT DETECTED Nasal Parainfluen 3 PCR NOT DETECTED Nasal Parainfluen 4 PCR NOT DETECTED Nasal RSV (PCR) NOT DETECTED Nasal B.pertussis DNA PCR NOT DETECTED Nasal C.pneumoniae (PCR) NOT DETECTED Juan Human Metapneumo PCR NOT DETECTED Nasal M.pneumoniae (PCR) NOT DETECTED Nasal SARS-CoV-2 (PCR) NOT DETECTED Blood Type Blood Type Recheck Antibody Screen Crossmatch IS Only PD MEDICAL DECISION MAKING - ED course Complexity details: reviewed results (guiac positive stool/melena. Not having BMs here. We do not have surgery director of community education today nor next few days, so Hospitalist declines as unable to treat patient adequately here if needs colonoscopy. ), considered differential (New anemia with last Hgb several months ago being 11, now is 5.6. Assess for blood loss, iron deficiency, etc. Will need transfusion now. ), d/w patient, d/w family (I talked with the patient's son who is power of regulatory attorney. We discussed goals of care. He did feel transfusion was appropriate to improve symptoms. Evaluation of the bleeding source with possible colonoscopy also. He would not want surgery nor massive transfusion.) ED course: Looking for bed availability at other facilties, so far none available. Repeat H/H after 1 unit RBCs shows no change in blood count. Will give second unit. No BM here, so unclear the rate of ongoing bleeding at this point. Will see what improvement after 2nd unit RBCs. Departure - Departure Disposition: 02 Transfer Acute Care Hosp Clinical Impression: Acute anemia, GI bleeding Condition: Stable
[2022-04-24 10:00] LABS: BASOPHILS % (AUTO) 0.3 %; EOSINOPHILS # (AUTO) 0.2 10^3/uL (0.0-0.7); EOSINOPHILS % (AUTO) 3.4 %; LYMPHOCYTES # (AUTO) 0.8 10^3/uL (1.5-3.5); LYMPHOCYTES % (AUTO) 11.8 %; MEAN CORPUSCULAR HEMOGLOBIN 31.4 pg (27.0-31.0); MEAN CORPUSCULAR VOLUME 101.2 fL (81.0-99.0); MEAN PLATELET VOLUME 9.8 fL (7.9-10.8); MONOCYTES # (AUTO) 0.8 10^3/uL (0.0-1.0); MONOCYTES % (AUTO) 10.9 %; NEUTROPHILS # (AUTO) 5.1 10^3/uL (1.5-6.6); NRBC ABSOLUTE COUNT (AUTO) 0.03 x10^3/uL; NUCLEATED RED BLOOD CELLS AUTO 0.4 /100WBC; PLT - PLATELET COUNT 341 10^3/uL (130-450); RED BLOOD COUNT 1.69 10^6/uL (4.20-5.40); RED CELL DISTRIBUTION WIDTH 15.9 % (12.0-15.0)
[2022-04-24 10:07] LABS: HCT - HEMATOCRIT 17.1 % (37.0-47.0); HGB - HEMOGLOBIN 5.3 g/dL (12.0-16.0)
[2022-04-24 10:30] LABS: ALBUMIN/GLOBULIN RATIO 1.2 (1.0-2.2); BILIRUBIN,TOTAL 0.4 mg/dL (0.2-1.0); CALCIUM 8.5 mg/dL (8.5-10.3); CREATININE 0.8 mg/dL (0.4-1.0); MAGNESIUM 2.4 mg/dL (1.7-2.8); POTASSIUM 3.7 mmol/L (3.5-5.0); TOTAL PROTEIN 5.6 g/dL (6.7-8.2)
[2022-04-24] MEDS ORDERED: HYDROmorphone 1 MG/ML CARPUJECT IVP STA ×2 (11:16→14:53)
[2022-04-24] MEDS ORDERED: PANTOPRAZOLE 40 MG VIAL IVP STA (11:16)
[2022-04-24 13:54] LABS: B. PARAPERTUSSIS- RESP PCR PAN NOT DETECTED; B. PERTUSSIS- RESP PCR PANEL NOT DETECTED; C. PNEUMONIAE- RESP PCR PANEL NOT DETECTED; CORONAVIRUS 229E-RESP PCR NOT DETECTED; CORONAVIRUS HKU1-RESP PCR NOT DETECTED; CORONAVIRUS NL63-RESP PCR NOT DETECTED; CORONAVIRUS OC43-RESP PCR NOT DETECTED; HUMAN METAPNEUMOVIRUS NOT DETECTED; INFLUENZA A- RESP PCR PANEL NOT DETECTED; INFLUENZA B - RESP PCR PANEL NOT DETECTED; M. PNEUMONIAE- RESP PCR PANEL NOT DETECTED; PARAINFLUENZA VIRUS 1 NOT DETECTED; PARAINFLUENZA VIRUS 2 NOT DETECTED; PARAINFLUENZA VIRUS 3 NOT DETECTED; PARAINFLUENZA VIRUS 4 NOT DETECTED; RHINOVIRUS/ENTEROVIRUS DETECTED; RSV- RESP PCR PANEL NOT DETECTED; SARS-CoV-2 -RESP PCR PANEL NOT DETECTED
[2022-04-24] MEDS: HYDROcod/ACETAM 5/325 MG TABLET PO SCH ×2 (15:21→21:02)
[2022-04-24 16:09] LABS: HGB - HEMOGLOBIN 5.5 g/dL (12.0-16.0)
[2022-04-24] MEDS ORDERED: PROTHROMBIN COMPLEX CONC 500 UNIT VIAL IVP STA (16:20)
[2022-04-24 16:40] LABS: INR 1.3 (0.8-1.2); PT - PROTHROMBIN TIME 14.1 secs (9.9-12.6)
[2022-04-24 16:47] LABS: PARTIAL THROMBOPLASTIN TIME 32.6 secs (24.9-33.3)
[2022-04-24 22:44] LABS: BASOPHILS % (AUTO) 0.3 %; EOSINOPHILS # (AUTO) 0.2 10^3/uL (0.0-0.7); HCT - HEMATOCRIT 22.7 % (37.0-47.0); HGB - HEMOGLOBIN 7.3 g/dL (12.0-16.0); LYMPHOCYTES % (AUTO) 13.8 %; MEAN CORPUSCULAR HEMOGLOBIN 30.7 pg (27.0-31.0); MEAN CORPUSCULAR HGB CONC 32.2 g/dL (32.0-36.0); MEAN CORPUSCULAR VOLUME 95.4 fL (81.0-99.0); MEAN PLATELET VOLUME 9.7 fL (7.9-10.8); MONOCYTES % (AUTO) 13.8 %; NEUTROPHILS # (AUTO) 4.9 10^3/uL (1.5-6.6); NEUTROPHILS % (AUTO) 68.5 %; NRBC ABSOLUTE COUNT (AUTO) 0.03 x10^3/uL; NUCLEATED RED BLOOD CELLS AUTO 0.4 /100WBC; PLT - PLATELET COUNT 286 10^3/uL (130-450); RED BLOOD COUNT 2.38 10^6/uL (4.20-5.40); WHITE BLOOD COUNT 7.1 x10^3/uL (4.8-10.8)
[2022-04-25] MEDS ORDERED: HYDROcod/ACETAM 5/325 MG TABLET PO STA (01:19)
[2022-04-25 02:08] LABS: HGB - HEMOGLOBIN 7.1 g/dL (12.0-16.0)
[2022-04-25 06:57] LABS: HCT - HEMATOCRIT 21.9 % (37.0-47.0)
[2022-04-25] MEDS ORDERED: PANTOPRAZOLE 40 MG VIAL IVP SCH (09:00)
[2022-04-25] MEDS: HYDROcod/ACETAM 5/325 MG TABLET PO SCH ×3 (09:21→18:04)
[2022-04-25] MEDS ORDERED: HYDROmorphone 0.5 MG/0.5 ML SYRINGE IVP STA (09:47)
[2022-04-25] MEDS ORDERED: fentaNYL 12 MCG PATCH TOP STA (15:31)
[2022-04-25 18:05] VITALS: BP 131/59
[2022-04-25] MEDS ORDERED: oxyCODONE 5 MG TABLET PO STA (18:09)
--- NOTE | 2022-04-25 21:26 | ED Physician Documentation ---
ED Addendum - Addendum Addendum: 04/25/22 21:11 Patient and her son (POA) had discussed changing goals of care. Patient particularly now feels that she would like to return to the idea of Comfort Measures only and does not want further transfusions nor any colonoscopy/GI intervention. Her Hgb counts have remained stable for a day since 3rd unit of blood. She has not had any BMs, so perhaps seems that the GI bleed has stopped or significantly tapered. Patient would like consult from Palliative/Hospice Care. We consulted and spoke with providers. I talked with Erna Casas who discussed case with Dr. Isaac. Dr. Isaac was not able to consult today in person, but Hospice nurse Zelda? came to ER and talked with patient and her son. Patient and son further discussed it and concluded Hospice care. Hospice will not be able to admit her to their service until Saturday. We can improve on the pain medicine regimen meanwhile. Suggestion fro Ms Casas was to change to Oxycodone QID (from hydorcodone bid), Lorazepam 0.5 mg BID, regular Miralax. Patient also discussed with me about longer acting meds, and we decided on also adding Fentanyl 12 mcg low dose pending Hospice. Regarding the GI bleed, she is aware that might bleed more consistently again and would lead to significant quick decline. She is aware, and son is aware as well, and are accepting of this outcome. Without particular treatments needed otherwise, the patient does not need to be in ER/admitted at this time now. She is preferring to return to [facility]. [facility] staff notified by ED nurse and they accept the patient back. Plan for Hospice to start Saturday.
== END 2022-04-25 18:44 | disposition home or self-care (01) ==
LOC: EDUNIT# → ED 08:28
DX: K92.2 Gastrointestinal hemorrhage, unspecified (principal); D63.8 Anemia in other chronic diseases classified elsewhere; I10 Essential (primary) hypertension
CPT/HCPCS: 36415; 36430; 80053; 82272; 82607; 82746; 83540; 83690; 83735; 83880; 84466; 85014; 85018; 85025; 85610; 85730; 86850; 86900; 86901; 86920; 87633; 96374; 96375; 96376; 99284; 99285; A9270; J1170; J7168; P9016

== ENCOUNTER 2022-05-29 10:21 | Outpatient (CLI) | payer MEDICARE ==
[2022-05-29 10:27] LABS: BASOPHILS % (AUTO) 0.3 %; EOSINOPHILS # (AUTO) 0.2 10^3/uL (0.0-0.7); EOSINOPHILS % (AUTO) 3.8 %; HCT - HEMATOCRIT 34.2 % (37.0-47.0); HGB - HEMOGLOBIN 10.4 g/dL (12.0-16.0); LYMPHOCYTES % (AUTO) 17.4 %; MEAN CORPUSCULAR HEMOGLOBIN 29.2 pg (27.0-31.0); MEAN CORPUSCULAR HGB CONC 30.4 g/dL (32.0-36.0); MEAN CORPUSCULAR VOLUME 96.1 fL (81.0-99.0); MEAN PLATELET VOLUME 10.7 fL (7.9-10.8); MONOCYTES # (AUTO) 0.6 10^3/uL (0.0-1.0); MONOCYTES % (AUTO) 9.7 %; NEUTROPHILS # (AUTO) 3.9 10^3/uL (1.5-6.6); NEUTROPHILS % (AUTO) 68.5 %; PLT - PLATELET COUNT 292 10^3/uL (130-450); RED BLOOD COUNT 3.56 10^6/uL (4.20-5.40); WHITE BLOOD COUNT 5.8 x10^3/uL (4.8-10.8)
[2022-05-29 10:43] LABS: ALBUMIN 2.9 g/dL (3.2-5.5); BILIRUBIN,TOTAL 0.6 mg/dL (0.2-1.0); CALCIUM 9.2 mg/dL (8.5-10.3); CREATININE 0.7 mg/dL (0.4-1.0); MAGNESIUM 2.1 mg/dL (1.7-2.8); POTASSIUM 3.6 mmol/L (3.5-5.0); TOTAL PROTEIN 5.9 g/dL (6.7-8.2)
== END 2022-05-29 10:22 | disposition home or self-care (01) ==
LOC: LAB.R 10:21
PROVIDERS: ATTEND Hospitalist
DX: K92.2 Gastrointestinal hemorrhage, unspecified (principal); D62 Acute posthemorrhagic anemia; E83.42 Hypomagnesemia
CPT/HCPCS: 80053; 83735; 85025

== ENCOUNTER 2022-07-28 11:20 | Outpatient (CLI) | payer MEDICARE ==
[2022-07-28 13:38] LABS: BASOPHILS % (AUTO) 0.6 %; EOSINOPHILS # (AUTO) 0.2 10^3/uL (0.0-0.7); EOSINOPHILS % (AUTO) 2.9 %; HCT - HEMATOCRIT 41.2 % (37.0-47.0); HGB - HEMOGLOBIN 13.5 g/dL (12.0-16.0); LYMPHOCYTES # (AUTO) 1.4 10^3/uL (1.5-3.5); LYMPHOCYTES % (AUTO) 19.7 %; MEAN CORPUSCULAR HEMOGLOBIN 28.7 pg (27.0-31.0); MEAN CORPUSCULAR HGB CONC 32.8 g/dL (32.0-36.0); MEAN CORPUSCULAR VOLUME 87.5 fL (81.0-99.0); MEAN PLATELET VOLUME 11.4 fL (7.9-10.8); MONOCYTES # (AUTO) 0.6 10^3/uL (0.0-1.0); MONOCYTES % (AUTO) 8.2 %; NEUTROPHILS # (AUTO) 4.9 10^3/uL (1.5-6.6); NEUTROPHILS % (AUTO) 68.2 %; PLT - PLATELET COUNT 288 10^3/uL (130-450); RED BLOOD COUNT 4.71 10^6/uL (4.20-5.40); RED CELL DISTRIBUTION WIDTH 14.4 % (12.0-15.0); WHITE BLOOD COUNT 7.2 x10^3/uL (4.8-10.8)
[2022-07-28 13:55] LABS: ALBUMIN 3.2 g/dL (3.2-5.5); ALBUMIN/GLOBULIN RATIO 1.1 (1.0-2.2); BILIRUBIN,TOTAL 0.7 mg/dL (0.2-1.0); CALCIUM 9.5 mg/dL (8.5-10.3); CREATININE 0.7 mg/dL (0.4-1.0); MAGNESIUM 1.6 mg/dL (1.7-2.8); POTASSIUM 2.7 mmol/L (3.5-5.0); TOTAL PROTEIN 6.2 g/dL (6.7-8.2)
== END 2022-07-28 23:59 | disposition home or self-care (01) ==
LOC: LAB.R 11:20
DX: I10 Essential (primary) hypertension (principal); M62.81 Muscle weakness (generalized); E83.42 Hypomagnesemia; I48.91 Unspecified atrial fibrillation; K92.2 Gastrointestinal hemorrhage, unspecified; M17.11 Unilateral primary osteoarthritis, right knee
CPT/HCPCS: 80053; 83735; 83880; 85025

== ENCOUNTER 2022-08-02 11:51 | Outpatient (CLI) | payer MEDICARE ==
[2022-08-02 12:15] LABS: CREATININE 0.8 mg/dL (0.4-1.0); POTASSIUM 3.3 mmol/L (3.5-5.0)
== END 2022-08-02 11:52 | disposition home or self-care (01) ==
LOC: LAB.R 11:51
PROVIDERS: ATTEND Hospitalist
DX: E83.42 Hypomagnesemia (principal); D62 Acute posthemorrhagic anemia
CPT/HCPCS: 80048

== ENCOUNTER 2022-08-11 08:00 | Outpatient (CLI) | payer MEDICARE ==
[2022-08-11 08:45] LABS: CALCIUM 9.1 mg/dL (8.5-10.3); CREATININE 0.7 mg/dL (0.4-1.0); POTASSIUM 2.8 mmol/L (3.5-5.0)
== END 2022-08-11 23:59 | disposition home or self-care (01) ==
LOC: LAB.R 08:00
PROVIDERS: ATTEND Internal Medicine
DX: E87.6 Hypokalemia (principal)
CPT/HCPCS: 80048; 83690

== ENCOUNTER 2022-10-19 13:55 | Outpatient (CLI) | payer SELFPAY ==
[2022-10-19 18:02] LABS: B. PARAPERTUSSIS- RESP PCR PAN NOT DETECTED; B. PERTUSSIS- RESP PCR PANEL NOT DETECTED; C. PNEUMONIAE- RESP PCR PANEL NOT DETECTED; CORONAVIRUS 229E-RESP PCR NOT DETECTED; CORONAVIRUS HKU1-RESP PCR NOT DETECTED; CORONAVIRUS NL63-RESP PCR NOT DETECTED; CORONAVIRUS OC43-RESP PCR NOT DETECTED; HUMAN METAPNEUMOVIRUS NOT DETECTED; INFLUENZA A- RESP PCR PANEL NOT DETECTED; INFLUENZA B - RESP PCR PANEL NOT DETECTED; M. PNEUMONIAE- RESP PCR PANEL NOT DETECTED; PARAINFLUENZA VIRUS 1 NOT DETECTED; PARAINFLUENZA VIRUS 2 NOT DETECTED; PARAINFLUENZA VIRUS 3 NOT DETECTED; PARAINFLUENZA VIRUS 4 NOT DETECTED; RHINOVIRUS/ENTEROVIRUS NOT DETECTED; RSV- RESP PCR PANEL NOT DETECTED; SARS-CoV-2 -RESP PCR PANEL NOT DETECTED
== END 2022-10-19 23:59 | disposition home or self-care (01) ==
LOC: LAB.R 13:55
PROVIDERS: ATTEND Internal Medicine
DX: R05.9 Cough, unspecified (principal); Z20.822 Contact with and (suspected) exposure to COVID-19
CPT/HCPCS: 87633

== ENCOUNTER 2022-11-14 15:39 | Outpatient (CLI) | payer MEDICARE ==
[2022-11-14 16:51] LABS: B. PARAPERTUSSIS- RESP PCR PAN NOT DETECTED; B. PERTUSSIS- RESP PCR PANEL NOT DETECTED; C. PNEUMONIAE- RESP PCR PANEL NOT DETECTED; CORONAVIRUS 229E-RESP PCR NOT DETECTED; CORONAVIRUS HKU1-RESP PCR NOT DETECTED; CORONAVIRUS NL63-RESP PCR NOT DETECTED; CORONAVIRUS OC43-RESP PCR NOT DETECTED; HUMAN METAPNEUMOVIRUS NOT DETECTED; INFLUENZA A- RESP PCR PANEL NOT DETECTED; INFLUENZA B - RESP PCR PANEL NOT DETECTED; M. PNEUMONIAE- RESP PCR PANEL NOT DETECTED; PARAINFLUENZA VIRUS 1 NOT DETECTED; PARAINFLUENZA VIRUS 2 NOT DETECTED; PARAINFLUENZA VIRUS 3 NOT DETECTED; PARAINFLUENZA VIRUS 4 NOT DETECTED; RHINOVIRUS/ENTEROVIRUS NOT DETECTED; RSV- RESP PCR PANEL NOT DETECTED; SARS-CoV-2 -RESP PCR PANEL NOT DETECTED
== END 2022-11-14 15:40 | disposition home or self-care (01) ==
LOC: LAB.R 15:39
PROVIDERS: ATTEND Internal Medicine
DX: R09.89 Other specified symptoms and signs involving the circulatory and respiratory systems (principal); Z20.822 Contact with and (suspected) exposure to COVID-19
CPT/HCPCS: 87633

== ENCOUNTER 2022-12-29 08:00 | Outpatient (CLI) | payer MEDICARE ==
[2022-12-29 20:33] LABS: BASOPHILS % (AUTO) 0.6 %; EOSINOPHILS # (AUTO) 0.3 10^3/uL (0.0-0.7); EOSINOPHILS % (AUTO) 5.3 %; HCT - HEMATOCRIT 35.3 % (37.0-47.0); HGB - HEMOGLOBIN 11.5 g/dL (12.0-16.0); LYMPHOCYTES # (AUTO) 1.3 10^3/uL (1.5-3.5); LYMPHOCYTES % (AUTO) 25.9 %; MEAN CORPUSCULAR HEMOGLOBIN 30.9 pg (27.0-31.0); MEAN CORPUSCULAR HGB CONC 32.6 g/dL (32.0-36.0); MEAN CORPUSCULAR VOLUME 94.9 fL (81.0-99.0); MEAN PLATELET VOLUME 11.4 fL (7.9-10.8); MONOCYTES # (AUTO) 0.5 10^3/uL (0.0-1.0); MONOCYTES % (AUTO) 10.4 %; NEUTROPHILS # (AUTO) 2.9 10^3/uL (1.5-6.6); NEUTROPHILS % (AUTO) 57.4 %; PLT - PLATELET COUNT 233 10^3/uL (130-450); RED BLOOD COUNT 3.72 10^6/uL (4.20-5.40); RED CELL DISTRIBUTION WIDTH 14.1 % (12.0-15.0); WHITE BLOOD COUNT 5.1 x10^3/uL (4.8-10.8)
[2022-12-29 21:00] LABS: ALBUMIN 2.7 g/dL (3.2-5.5); ALBUMIN/GLOBULIN RATIO 0.9 (1.0-2.2); ALKALINE PHOSPHATASE 58 IU/L (42-121); ALT ALANINE AMINOTRANSFERASE 40 IU/L (10-60); AST ASPARTATE AMINOTRANSFERASE 32 IU/L (10-42); BILIRUBIN,TOTAL 0.8 mg/dL (0.2-1.0); BUN - BLOOD UREA NITROGEN 18 mg/dL (6-20); CALCIUM 8.6 mg/dL (8.5-10.3); CARBON DIOXIDE - CO2 20 mmol/L (21-32); CHLORIDE 105 mmol/L (101-111); CHOL/HDL RATIO 4.2 (<4.4); CHOLESTEROL 101 mg/dL; CREATININE 0.8 mg/dL (0.4-1.0); GFR - MDRD 69 (>89); GLUCOSE 96 mg/dL (70-100); HDL CHOLESTEROL 24 mg/dL; LDL CHOLESTEROL,CALCULATED 55 mg/dL; LDL/HDL RATIO 2.3 (<4.4); POTASSIUM 3.8 mmol/L (3.5-5.0); SODIUM 137 mmol/L (135-145); TOTAL PROTEIN 5.7 g/dL (6.7-8.2); TRIGLYCERIDES 110 mg/dL; VLDL CHOLESTEROL 22 mg/dL
[2022-12-29 21:32] LABS: ESTIMATED AVERAGE GLUCOSE 100 mg/dL (70-100); HEMOGLOBIN A1c% 5.1 % (4.27-6.07)
== END 2022-12-29 23:59 | disposition home or self-care (01) ==
LOC: LAB.R 08:00
DX: I10 Essential (primary) hypertension (principal); E83.42 Hypomagnesemia; M62.81 Muscle weakness (generalized); D62 Acute posthemorrhagic anemia; E66.01 Morbid (severe) obesity due to excess calories
CPT/HCPCS: 80053; 80061; 83036; 83721; 84443; 85025

== ENCOUNTER 2023-03-07 15:59 | Outpatient (CLI) | payer MEDICARE ==
--- NOTE | 2023-03-08 15:05 | XRAY Report ---
PROCEDURE: Chest 2 View X-Ray INDICATIONS: ACUTE COUGH TECHNIQUE: 2 views of the chest were acquired. COMPARISON: None. FINDINGS: Surgical changes and devices: Clips are present overlying the left upper quadrant. Lungs and pleura: No pleural effusions or pneumothorax. Lungs are clear. Mediastinum: Mediastinal contours appear normal. Heart size is normal. Bones and chest wall: No suspicious bony lesions. Overlying soft tissues appear unremarkable. Pro minent arthritic change is present at the glenohumeral joint space as well as humeral head most sever e on the right. Prominent calcifications are present suspected represent osteophytes versus potential ly loose bodies. IMPRESSION: No acute cardiopulmonary process. Reviewed by: Cassidy Hugo MD on 03/08/2023 3:03 PM PDT Approved by: Cassidy Hugo MD on 03/08/2023 3:03 PM PDT Station ID: [id number]
== END 2023-03-07 16:00 | disposition home or self-care (01) ==
LOC: DI 15:59
PROVIDERS: ATTEND Registered Nurse
DX: R05.1 Acute cough (principal)

== ENCOUNTER 2023-05-01 13:44 | Outpatient (CLI) | payer MEDICARE ==
[2023-05-01 13:53] LABS: BILIRUBIN,URINE NEGATIVE (NEGATIVE); GLUCOSE, URINE (UA) NEGATIVE (NEGATIVE); KETONES,URINE (UA) NEGATIVE (NEGATIVE); LEUKOCYTE ESTERASE, URINE LARGE (NEGATIVE); NITRITE,URINE NEGATIVE (NEGATIVE); OCCULT BLOOD,URINE MODERATE (NEGATIVE); PH,URINE 8.5 PH (5.0-7.5); PROTEIN,URINE 100 mg/dL (NEGATIVE); UROBILINOGEN,URINE 1 (NORMAL) E.U./dL (NORMAL)
[2023-05-01 13:56] LABS: BASOPHILS % (AUTO) 0.3 %; EOSINOPHILS # (AUTO) 0.5 10^3/uL (0.0-0.7); EOSINOPHILS % (AUTO) 5.3 %; HCT - HEMATOCRIT 37.1 % (37.0-47.0); HGB - HEMOGLOBIN 12.2 g/dL (12.0-16.0); LYMPHOCYTES # (AUTO) 1.4 10^3/uL (1.5-3.5); LYMPHOCYTES % (AUTO) 15.6 %; MEAN CORPUSCULAR HEMOGLOBIN 31.2 pg (27.0-31.0); MEAN CORPUSCULAR HGB CONC 32.9 g/dL (32.0-36.0); MEAN CORPUSCULAR VOLUME 94.9 fL (81.0-99.0); MEAN PLATELET VOLUME 10.6 fL (7.9-10.8); MONOCYTES # (AUTO) 0.7 10^3/uL (0.0-1.0); MONOCYTES % (AUTO) 7.7 %; NEUTROPHILS # (AUTO) 6.1 10^3/uL (1.5-6.6); NEUTROPHILS % (AUTO) 70.9 %; PLT - PLATELET COUNT 239 10^3/uL (130-450); RED BLOOD COUNT 3.91 10^6/uL (4.20-5.40); RED CELL DISTRIBUTION WIDTH 12.6 % (12.0-15.0); WHITE BLOOD COUNT 8.7 x10^3/uL (4.8-10.8)
[2023-05-01 13:59] LABS: CLARITY,URINE CLOUDY (CLEAR)
[2023-05-01 14:00] LABS: CALCIUM 8.9 mg/dL (8.5-10.3); CREATININE 0.8 mg/dL (0.4-1.0)
[2023-05-01 14:14] LABS: BACTERIA,URINE Many /HPF (None Seen); CRYSTALS,URINE 3-5 Calcium Oxalate /LPF; SQUAMOUS EPITHELIAL CELL,UR FEW Squamous (<= Few); WBC CLUMPS,URINE PRESENT; WBC,URINE >25 /HPF (0-5)
== END 2023-05-01 13:45 | disposition home or self-care (01) ==
LOC: LAB.R 13:44
PROVIDERS: ATTEND Registered Nurse
DX: E83.42 Hypomagnesemia (principal); D62 Acute posthemorrhagic anemia; N39.0 Urinary tract infection, site not specified
CPT/HCPCS: 80048; 81001; 85025; 87077; 87086; 87181

== ENCOUNTER 2023-05-21 15:27 | Outpatient (CLI) | payer MEDICARE ==
[2023-05-21 15:44] LABS: BILIRUBIN,URINE NEGATIVE (NEGATIVE); GLUCOSE, URINE (UA) NEGATIVE (NEGATIVE); KETONES,URINE (UA) NEGATIVE (NEGATIVE); LEUKOCYTE ESTERASE, URINE SMALL (NEGATIVE); NITRITE,URINE NEGATIVE (NEGATIVE); OCCULT BLOOD,URINE NEGATIVE (NEGATIVE); PROTEIN,URINE NEGATIVE (NEGATIVE); UROBILINOGEN,URINE 1 (NORMAL) E.U./dL (NORMAL)
[2023-05-21 15:51] LABS: CLARITY,URINE HAZY (CLEAR)
[2023-05-21 16:00] LABS: BACTERIA,URINE Rare /HPF (None Seen); EPITHELIAL CELLS,UR FEW Transitional /HPF (<= Few); RBC,URINE None Seen /HPF (0-5); SQUAMOUS EPITHELIAL CELL,UR FEW Squamous (<= Few)
== END 2023-05-21 15:28 | disposition home or self-care (01) ==
LOC: LAB.R 15:27
PROVIDERS: ATTEND Registered Nurse
DX: N39.0 Urinary tract infection, site not specified (principal)
CPT/HCPCS: 81001; 87086

== ENCOUNTER 2023-06-09 08:00 | Outpatient (CLI) | payer MEDICARE ==
[2023-06-09 17:24] LABS: BASOPHILS % (AUTO) 0.4 %; EOSINOPHILS # (AUTO) 0.4 10^3/uL (0.0-0.7); EOSINOPHILS % (AUTO) 4.1 %; HCT - HEMATOCRIT 39.9 % (37.0-47.0); HGB - HEMOGLOBIN 12.6 g/dL (12.0-16.0); LYMPHOCYTES # (AUTO) 1.5 10^3/uL (1.5-3.5); LYMPHOCYTES % (AUTO) 15.9 %; MEAN CORPUSCULAR HGB CONC 31.6 g/dL (32.0-36.0); MEAN PLATELET VOLUME 11.5 fL (7.9-10.8); MONOCYTES # (AUTO) 0.8 10^3/uL (0.0-1.0); MONOCYTES % (AUTO) 8.3 %; NEUTROPHILS # (AUTO) 6.6 10^3/uL (1.5-6.6); PLT - PLATELET COUNT 232 10^3/uL (130-450); RED BLOOD COUNT 4.07 10^6/uL (4.20-5.40); WHITE BLOOD COUNT 9.3 x10^3/uL (4.8-10.8)
[2023-06-09 17:39] LABS: ALBUMIN 3.6 g/dL (3.2-5.5); ALBUMIN/GLOBULIN RATIO 1.9 (1.0-2.2); BILIRUBIN,TOTAL 0.5 mg/dL (0.2-1.0); CALCIUM 9.1 mg/dL (8.5-10.3); CREATININE 0.6 mg/dL (0.6-1.3); MAGNESIUM 1.7 mg/dL (1.7-2.3); PHOSPHORUS 3.9 mg/dL (3.7-7.2); POTASSIUM 4.4 mmol/L (3.5-4.5); TOTAL PROTEIN 5.5 g/dL (6.4-8.9)
== END 2023-06-09 23:59 | disposition home or self-care (01) ==
LOC: LAB.R 08:00
PROVIDERS: ATTEND Registered Nurse
DX: Z13.228 Encounter for screening for other metabolic disorders (principal); R79.9 Abnormal finding of blood chemistry, unspecified
CPT/HCPCS: 80053; 83735; 84100; 85025

== ENCOUNTER 2023-07-10 11:31 | Outpatient (CLI) | payer MEDICARE ==
[2023-07-10 11:40] LABS: BASOPHILS % (AUTO) 0.5 %; EOSINOPHILS # (AUTO) 0.3 10^3/uL (0.0-0.7); HCT - HEMATOCRIT 38.5 % (37.0-47.0); HGB - HEMOGLOBIN 12.4 g/dL (12.0-16.0); LYMPHOCYTES # (AUTO) 1.3 10^3/uL (1.5-3.5); MEAN CORPUSCULAR HGB CONC 32.2 g/dL (32.0-36.0); MEAN CORPUSCULAR VOLUME 96.3 fL (81.0-99.0); MEAN PLATELET VOLUME 10.4 fL (7.9-10.8); MONOCYTES # (AUTO) 0.5 10^3/uL (0.0-1.0); MONOCYTES % (AUTO) 7.9 %; NEUTROPHILS # (AUTO) 4.4 10^3/uL (1.5-6.6); NEUTROPHILS % (AUTO) 66.1 %; PLT - PLATELET COUNT 268 10^3/uL (130-450); RED CELL DISTRIBUTION WIDTH 12.9 % (12.0-15.0); WHITE BLOOD COUNT 6.6 x10^3/uL (4.8-10.8)
[2023-07-10 11:55] LABS: ALBUMIN 3.5 g/dL (3.2-5.5); ALBUMIN/GLOBULIN RATIO 1.4 (1.0-2.2); BILIRUBIN,TOTAL 0.4 mg/dL (0.2-1.0); CALCIUM 9.4 mg/dL (8.5-10.3); CREATININE 0.8 mg/dL (0.6-1.3); POTASSIUM 4.3 mmol/L (3.5-4.5)
== END 2023-07-10 11:32 | disposition home or self-care (01) ==
LOC: LAB.R 11:31
PROVIDERS: ATTEND Registered Nurse
DX: I10 Essential (primary) hypertension (principal); I48.91 Unspecified atrial fibrillation; I48.20 Chronic atrial fibrillation, unspecified; R09.3 Abnormal sputum; R05.1 Acute cough; R59.0 Localized enlarged lymph nodes
CPT/HCPCS: 80053; 85025

== ENCOUNTER 2023-07-10 12:30 | Outpatient (CLI) | payer MEDICARE ==
--- NOTE | 2023-07-10 16:15 | XRAY Report ---
PROCEDURE: Chest 2 View X-Ray INDICATIONS: COUGH TECHNIQUE: 2 views of the chest were acquired. COMPARISON: None. FINDINGS: Surgical changes and devices: None. Lungs and pleura: No pleural effusions or pneumothorax. Lungs are clear. Mediastinum: Enlarged hilar lymph nodes. Bones and chest wall: No suspicious bony lesions. Overlying soft tissues appear unremarkable. IMPRESSION: Enlarged hilar lymph nodes. Consider CT with contrast for further evaluation. Reviewed by: Keith Juan on 07/10/2023 4:13 PM PDT Approved by: Keith Juan on 07/10/2023 4:13 PM PDT Station ID: [id number]
== END 2023-07-10 12:31 | disposition home or self-care (01) ==
LOC: DI 12:30
PROVIDERS: ATTEND Registered Nurse
DX: R09.3 Abnormal sputum (principal); R05.1 Acute cough; R59.0 Localized enlarged lymph nodes
CPT/HCPCS: 80053; 85025

== ENCOUNTER 2023-10-21 11:11 | Outpatient (CLI) | payer MEDICARE | END 2023-10-21 11:12 | disposition critical access hospital (66) | LOC: EMS 11:11 | DX: R52 Pain, unspecified (principal); R41.82 Altered mental status, unspecified | CPT/HCPCS: A0425; A0429 ==

== ENCOUNTER 2023-10-21 11:51 | Inpatient (IN) | payer MEDICARE ==
--- NOTE | 2023-10-21 12:21 | ED Physician Documentation ---
PD HPI ABD PAIN - Stated complaint Stated Complaint: PAIN - Chief complaint Chief Complaint: General - History obtained from History obtained from: Patient, EMS, Caregiver - History of Present Illness Timing - onset: How many days ago (1) Timing - duration: Days (Onset today of decreased alertness and interaction with apparent general weakness and fever. Sent here from regions of [place] by EMS for these conditions.) Quality: Aching Associated symptoms: Fever. No: Vomiting, Diarrhea Review of Systems Unable to obtain: AMS, Other (info from Medics and [place] caregivers.) Constitutional: reports: Fever Neurologic: reports: Generalized weakness, Altered mental status PD PAST MEDICAL HISTORY - Past Medical History Past Medical History: Yes Cardiovascular: Hypertension Respiratory: None Neuro: Dementia Endocrine/Autoimmune: None - Past Surgical History Past Surgical History: No - Present Medications Home Medications: Ambulatory Orders Medication Instructions Recorded Confirmed Acetaminophen [Tylenol] 650 mg PO BID 04/24/22 04/24/22 Albuterol Sulf [Ventolin Hfa 2 puffs INH Q6HR PRN 04/24/22 04/24/22 Inhaler] Bisacodyl Supp [Dulcolax Supp] 10 mg [place] PRN PRN 04/24/22 04/24/22 Cholecalciferol [Vitamin D3] 25 mcg PO DAILY 04/24/22 04/24/22 Citalopram Hydrobromide [Celexa] 20 mg PO DAILY 04/24/22 04/24/22 Cyanocobalamin (Vitamin B-12) 1,000 mcg PO DAILY 04/24/22 04/24/22 [Vitamin B-12] Docusate Sodium 100Mg Capsule 100 mg PO BID 04/24/22 04/24/22 [Colace 100Mg Capsule] Duloxetine HCl [Cymbalta] 20 mg PO BID 04/24/22 04/24/22 Famotidine [Pepcid] 20 mg PO DAILY 04/24/22 04/24/22 Fexofenadine HCl [Allergy Relief] 60 mg PO BID 04/24/22 04/24/22 Fluticasone Furoate [Arnuity 1 puffs IH DAILY 04/24/22 04/24/22 Ellipta] Furosemide [Lasix] 80 mg PO DAILY 04/24/22 04/24/22 HYDROcod/ACETAM 5/325 [[place] 5/325] 2 tab PO DAILY 04/24/22 04/24/22 HYDROcod/ACETAM 5/325 [[place] 5/325] 2 tab PO DAILY PRN 04/24/22 04/24/22 Hydrocortisone 1% Cream 1 applic TOP Q6HR PRN 04/24/22 04/24/22 [Hydrocortisone] LORazepam [Ativan] 0.5 mg PO BID 04/24/22 04/24/22 LORazepam [Ativan] 0.5 mg PO DAILY PRN 04/24/22 04/24/22 Magnesium Oxide 400 mg PO BID 04/24/22 04/24/22 Menthol [Biofreeze] 473 ml TP BID 04/24/22 04/24/22 Metoprolol Succinate [Toprol Xl] 25 mg PO DAILY 04/24/22 04/24/22 Mineral Oil [Mineral Oil Enema] 1 ea RC PRN PRN 04/24/22 04/24/22 Montelukast Sodium 10 mg PO DAILY PM 04/24/22 04/24/22 Naproxen [Naprosyn] 250 mg PO BID 04/24/22 04/24/22 Nystatin Cream [Mycostatin Cream] 1 applic TOP BID PRN 04/24/22 04/24/22 Nystatin Cream [Mycostatin Cream] 1 applic TOP Q6H PRN 04/24/22 04/24/22 Pnv No.121/Iron/Folic Acid 1 each PO DAILY 04/24/22 04/24/22 [ Multivitamin Tablet] Potassium Chloride [Klor-Con M20] 20 meq PO DAILY 04/24/22 04/24/22 Rivaroxaban [Xarelto] 1 tablet PO DAILY PM 04/24/22 04/24/22 Senna [Senokot] 2 tab PO PRN PRN 04/24/22 04/24/22 polyethylene glycoL 3350 [Miralax] 17 gm PO PRN PRN 04/24/22 04/24/22 Acetaminophen [Acetaminophen Extra 500 mg PO QID PRN #30 tablet 04/25/22 Strength] fentaNYL 12 MCG PATCH [Duragesic 1 each TD Q3D 6 Days #2 patch 04/25/22 12mcg patch] oxyCODONE [Roxicodone] 5 mg PO Q6H #25 tablet 04/25/22 polyethylene glycoL 3350(BULK) 17 gm PO DAILY PRN #1 bottle 04/25/22 [Miralax] - Allergies Allergies/Adverse Reactions: Allergies Allergy/AdvReac Type Severity Reaction Status Date / Time codeine Allergy Nausea Verified 10/21/23 12:04 Penicillins Allergy Rash Verified 10/21/23 12:04 - Social History Does the pt smoke?: No Smoking Status: Never smoker Does the pt drink ETOH?: No Does the pt have substance abuse?: No - POLST Patient has POLST: Yes POLST Status: DNR PD ED PE NORMAL - Vitals Vital signs reviewed: Yes - General General: No acute distress, Well developed/nourished. No: Alert and oriented X 3 (opens eyes to verbal. Follows some commands. Not responding with coherent answers, but saying "ow, ow, ow". Not localizing pain. ) - HEENT HEENT: Pharynx benign - Neck Neck: Supple, no meningeal sign, No adenopathy - Cardiac Cardiac: No murmur. No: RRR (mild tachycardia) - Respiratory Respiratory: No: Clear bilaterally (some congested sounds right lower field. Exp wheezing noted. ) - Abdomen Abdomen: Normal bowel sounds, Soft, Non distended, No organomegaly, Other (general mild guarding without focality. No percussion tender. Umbilical hernia noted without firmness/redness/tender. ) - Derm Derm: Normal color, Warm and dry - Neuro Neuro: No motor deficit, No sensory deficit. No: Alert and oriented X 3 Eye Opening: To Voice Motor: Obeys Commands Verbal: Confused GCS Score: 13 Results - Vitals Vitals: Vital Signs - 24 hr 10/21/23 10/21/23 10/21/23 11:59 12:34 13:04 Temperature 39.6 C H Heart Rate 106 H 114 H 111 H Respiratory 20 22 20 Rate Blood Pressure 157/134 H 126/52 L 112/69 O2 Saturation 91 L 93 90 L If not protocol : Oxygen Flow, liters/minute 10/21/23 10/21/23 10/21/23 13:30 14:00 14:05 Temperature 38.7 C H Heart Rate 106 H 102 H 102 H Respiratory 14 15 Rate Blood Pressure 113/69 112/69 O2 Saturation 89 L 88 L 94 If not protocol 3 : Oxygen Flow, liters/minute 10/21/23 10/21/23 10/21/23 15:00 15:30 16:00 Temperature Heart Rate 107 H 107 H 108 H Respiratory 16 16 16 Rate Blood Pressure 92/69 100/66 104/69 O2 Saturation 94 95 95 If not protocol 3 3 3 : Oxygen Flow, liters/minute 10/21/23 10/21/23 10/21/23 16:30 17:00 17:30 Temperature Heart Rate 101 H 96 92 Respiratory 16 19 18 Rate Blood Pressure 96/70 92/65 93/63 O2 Saturation 96 89 L 95 If not protocol 3 2 : Oxygen Flow, liters/minute Oxygen O2 Source Nasal cannula - Labs Labs: Laboratory Tests 10/21/23 10/21/23 10/21/23 12:18 12:18 12:18 WBC 15.6 H RBC 4.05 L Hgb 12.4 Hct 38.6 MCV 95.3 MCH 30.6 MCHC 32.1 RDW 12.6 Plt Count 255 MPV 10.3 Neut # (Auto) 13.7 H Lymph # (Auto) 0.7 L [place] # (Auto) 0.9 Eos # (Auto) 0.1 Baso # (Auto) 0.1 Absolute Nucleated RBC 0.00 Nucleated RBC % 0.0 Sodium 135 Potassium 4.2 Chloride 99 L Carbon Dioxide 29 Anion Gap 7.0 BUN 19 Creatinine 0.6 Estimated GFR (MDRD) 96 Glucose 113 H Lactic Acid 2.0 Calcium 9.4 Magnesium 1.4 L Total Bilirubin 0.8 AST 11 ALT 7 L Alkaline Phosphatase 72 Total Protein 6.2 L Albumin 3.5 Globulin 2.7 Albumin/Globulin Ratio 1.3 Lipase < 10 L Urine Color Urine Clarity Urine pH Ur Specific [place] Urine Protein Urine Glucose (UA) Urine Ketones Urine Occult Blood Urine Nitrite Urine Bilirubin Urine Urobilinogen Ur Leukocyte Esterase Urine RBC Urine WBC Urine WBC Clumps Ur Squamous Epith Cells Urine Bacteria Ur Microscopic Review Urine Culture Comments Nasal Adenovirus (PCR) Nasal B. parapertussis DNA (PCR) Nasal Coronavir 229E PCR Nasal Coronavir HKU1 PCR Nasal Coronavir NL63 PCR Nasal Coronavir OC43 PCR Nasal Enterovir/Rhinovir PCR Nasal Influenza B PCR Nasal Influenza A PCR Nasal Parainfluen 1 PCR Nasal Parainfluen 2 PCR Nasal Parainfluen 3 PCR Nasal Parainfluen 4 PCR Nasal RSV (PCR) Nasal B.pertussis DNA PCR Nasal C.pneumoniae (PCR) Juan Human Metapneumo PCR Nasal M.pneumoniae (PCR) Nasal SARS-CoV-2 (PCR) 10/21/23 10/21/23 12:18 14:02 WBC RBC Hgb Hct MCV MCH MCHC RDW Plt Count MPV Neut # (Auto) Lymph # (Auto) [place] # (Auto) Eos # (Auto) Baso # (Auto) Absolute Nucleated RBC Nucleated RBC % Sodium Potassium Chloride Carbon Dioxide Anion Gap BUN Creatinine Estimated GFR (MDRD) Glucose Lactic Acid Calcium Magnesium Total Bilirubin AST ALT Alkaline Phosphatase Total Protein Albumin Globulin Albumin/Globulin Ratio Lipase Urine Color YELLOW Urine Clarity SL. CLOUDY Urine pH 5.5 Ur Specific [place] 1.025 Urine Protein NEGATIVE Urine Glucose (UA) NEGATIVE Urine Ketones NEGATIVE Urine Occult Blood TRACE-INTA Urine Nitrite NEGATIVE Urine Bilirubin NEGATIVE Urine Urobilinogen 1 (NORMAL) Ur Leukocyte Esterase LARGE H Urine RBC 0-5 Urine WBC >25 H Urine WBC Clumps PRESENT Ur Squamous Epith Cells FEW Squamous Urine Bacteria Moderate H Ur Microscopic Review INDICATED Urine Culture Comments INDICATED Nasal Adenovirus (PCR) NOT DETECTED Nasal B. parapertussis DNA (PCR) NOT DETECTED Nasal Coronavir 229E PCR NOT DETECTED Nasal Coronavir HKU1 PCR NOT DETECTED Nasal Coronavir NL63 PCR NOT DETECTED Nasal Coronavir OC43 PCR NOT DETECTED Nasal Enterovir/Rhinovir PCR NOT DETECTED Nasal Influenza B PCR NOT DETECTED Nasal Influenza A PCR NOT DETECTED Nasal Parainfluen 1 PCR NOT DETECTED Nasal Parainfluen 2 PCR NOT DETECTED Nasal Parainfluen 3 PCR NOT DETECTED Nasal Parainfluen 4 PCR NOT DETECTED Nasal RSV (PCR) NOT DETECTED Nasal B.pertussis DNA PCR NOT DETECTED Nasal C.pneumoniae (PCR) NOT DETECTED Juan Human Metapneumo PCR NOT DETECTED Nasal M.pneumoniae (PCR) NOT DETECTED Nasal SARS-CoV-2 (PCR) NOT DETECTED - Rads (name of study) chest xray Relevant Findings:: Prelim report reviewed (some interstitial prominence c/w infectious or CHF. ), EMP independent interpretation of test abd/pelvic CT Relevant Findings:: Prelim report reviewed (pnumeonic infiltrate lower lung. No intra-abd acute process. Noted large stool amount. ), EMP independent interpretation of test PD Medical Decision Making - ED course Complexity details: reviewed results (lactate normal> WBC elevated 15K. electrolytes normal. UA with signs of infection. CT abd/pel with constipation but no acute intrabd process. Pneumonia noted lower lung field. ), considered differential, d/w patient ED course: The patient presented by EMS from [facility]. History of prior strokes and some dementia. However she is typically ambulatory with a walker and conversant/interactive. She was generally weaker and seemed confused today and was noted to have a fever. No apparent cough or respiratory symptoms. No vomiting or diarrhea. She was seen in discomfort saying "ow ow ow" it seems like she might be referring to her abdomen. Her neck seems supple. Lung sounds did have some congestion and wheezing. She was given IV fluids. Her chest x-ray did not show any obvious significant infiltrates. However given concern for abdominal process, I did do a CT of the abdomen pelvis. This showed a pneumonic infiltrate in the lower lung base. Constipation of stool but otherwise no acute process in the abdomen. Urinalysis done by in and out cath did show signs of a urinary tract infection. She was given IV fluids as well as some medication of Toradol and 4 of morphine to help with discomfort. She was given Rocephin for the UTI and then subsequently added Zithromax when the pneumonia was diagnosed. Her heart rate and blood pressure were adequate. Lactate was in the normal range. She did not appear septic. She did have fever coming in of 38.9. This has come down with some ketorolac and fluids. The respiratory viral panel was negative. She is more conversant now and not seeming in pain. However still has some level of confusion and on room air is 85 to 88% oxygenation. I attempted contact with the hospitalist approximately 4:30 PM but they were busy with other patients. We will look at admitting the patient given her findings. Departure - Departure Disposition: 66 [facility] DC/Xfer Clinical Impression: Confusion, Weakness, UTI (urinary tract infection), Pneumonia, Hypoxia Condition: Stable Record reviewed to determine appropriate education?: Yes Forms: PCP List
[2023-10-21] MEDS ORDERED: KETOROLAC 15 MG/ML VIAL IVP STA (12:25)
[2023-10-21] MEDS ORDERED: MORPHINE 2 MG/ML CARPUJECT IVP STA (12:25)
[2023-10-21] MEDS ORDERED: SODIUM CHLORIDE 0.9% 1,000 ML IV STA ×2 (12:26→18:10)
[2023-10-21 12:34] LABS: BASOPHILS # (AUTO) 0.1 10^3/uL (0.0-0.1); BASOPHILS % (AUTO) 0.4 %; EOSINOPHILS # (AUTO) 0.1 10^3/uL (0.0-0.7); EOSINOPHILS % (AUTO) 0.5 %; HCT - HEMATOCRIT 38.6 % (37.0-47.0); HGB - HEMOGLOBIN 12.4 g/dL (12.0-16.0); LYMPHOCYTES # (AUTO) 0.7 10^3/uL (1.5-3.5); LYMPHOCYTES % (AUTO) 4.6 %; MEAN CORPUSCULAR HEMOGLOBIN 30.6 pg (27.0-31.0); MEAN CORPUSCULAR HGB CONC 32.1 g/dL (32.0-36.0); MEAN CORPUSCULAR VOLUME 95.3 fL (81.0-99.0); MEAN PLATELET VOLUME 10.3 fL (7.9-10.8); MONOCYTES # (AUTO) 0.9 10^3/uL (0.0-1.0); MONOCYTES % (AUTO) 5.9 %; NEUTROPHILS # (AUTO) 13.7 10^3/uL (1.5-6.6); NEUTROPHILS % (AUTO) 88.3 %; PLT - PLATELET COUNT 255 10^3/uL (130-450); RED BLOOD COUNT 4.05 10^6/uL (4.20-5.40); RED CELL DISTRIBUTION WIDTH 12.6 % (12.0-15.0); WHITE BLOOD COUNT 15.6 x10^3/uL (4.8-10.8)
[2023-10-21 12:44] LABS: ALBUMIN 3.5 g/dL (3.2-5.5); ALBUMIN/GLOBULIN RATIO 1.3 (1.0-2.2); ALKALINE PHOSPHATASE 72 IU/L (42-121); ALT ALANINE AMINOTRANSFERASE 7 IU/L (10-60); AST ASPARTATE AMINOTRANSFERASE 11 IU/L (10-42); BILIRUBIN,TOTAL 0.8 mg/dL (0.2-1.0); BUN - BLOOD UREA NITROGEN 19 mg/dL (6-20); CALCIUM 9.4 mg/dL (8.5-10.3); CARBON DIOXIDE - CO2 29 mmol/L (21-32); CHLORIDE 99 mmol/L (101-111); CREATININE 0.6 mg/dL (0.6-1.3); GFR - MDRD 96 (>89); GLUCOSE 113 mg/dL (74-104); LIPASE < 10 U/L (11-82); MAGNESIUM 1.4 mg/dL (1.7-2.3); POTASSIUM 4.2 mmol/L (3.5-4.5); SODIUM 135 mmol/L (135-145); TOTAL PROTEIN 6.2 g/dL (6.4-8.9)
--- NOTE | 2023-10-21 13:13 | XRAY Report ---
PROCEDURE: Chest 1 View X-Ray INDICATIONS: chest pain TECHNIQUE: One view of the chest was acquired. COMPARISON: 07/10/2023 FINDINGS: Surgical changes and devices: Multiple surgical clips noted in the left upper abdomen as before. Lungs and pleura: No pleural effusion or pneumothorax. Diffuse interstitial prominence and mild frances hilar airway thickening. No focal consolidation. Mediastinum: Mediastinal contours appear normal. Heart size is normal. Atherosclerotic calcificat ions of the aortic arch are present. Bones and chest wall: No suspicious bony lesions. Overlying soft tissues appear unremarkable. IMPRESSION: Diffuse interstitial prominence and perihilar airway thickening. Findings are nonspecific and may rep resent an infectious or inflammatory process although pulmonary edema may have a similar appearance. No focal consolidation identified. Recommend follow-up chest radiograph 4-6 weeks after treatment to document resolution of findings and /or return to baseline exam. Reviewed by: Jhoan Larson MD on 10/21/2023 1:12 PM PST Approved by: Jhoan Larson MD on 10/21/2023 1:12 PM PST Station ID: [id number]
[2023-10-21 13:30] LABS: B. PARAPERTUSSIS- RESP PCR PAN NOT DETECTED; B. PERTUSSIS- RESP PCR PANEL NOT DETECTED; C. PNEUMONIAE- RESP PCR PANEL NOT DETECTED; CORONAVIRUS 229E-RESP PCR NOT DETECTED; CORONAVIRUS HKU1-RESP PCR NOT DETECTED; CORONAVIRUS NL63-RESP PCR NOT DETECTED; CORONAVIRUS OC43-RESP PCR NOT DETECTED; HUMAN METAPNEUMOVIRUS NOT DETECTED; INFLUENZA A- RESP PCR PANEL NOT DETECTED; INFLUENZA B - RESP PCR PANEL NOT DETECTED; M. PNEUMONIAE- RESP PCR PANEL NOT DETECTED; PARAINFLUENZA VIRUS 1 NOT DETECTED; PARAINFLUENZA VIRUS 2 NOT DETECTED; PARAINFLUENZA VIRUS 3 NOT DETECTED; PARAINFLUENZA VIRUS 4 NOT DETECTED; RHINOVIRUS/ENTEROVIRUS NOT DETECTED; RSV- RESP PCR PANEL NOT DETECTED; SARS-CoV-2 -RESP PCR PANEL NOT DETECTED
[2023-10-21] MEDS ORDERED: HYDROmorphone 1 MG/ML CARPUJECT IVP STA (13:59)
[2023-10-21 14:13] LABS: BILIRUBIN,URINE NEGATIVE (NEGATIVE); GLUCOSE, URINE (UA) NEGATIVE (NEGATIVE); KETONES,URINE (UA) NEGATIVE (NEGATIVE); LEUKOCYTE ESTERASE, URINE LARGE (NEGATIVE); NITRITE,URINE NEGATIVE (NEGATIVE); OCCULT BLOOD,URINE TRACE-INTA (NEGATIVE); PH,URINE 5.5 PH (5.0-7.5); PROTEIN,URINE NEGATIVE (NEGATIVE); UROBILINOGEN,URINE 1 (NORMAL) E.U./dL (NORMAL)
[2023-10-21 14:17] LABS: CLARITY,URINE SL. CLOUDY (CLEAR)
[2023-10-21] MEDS ORDERED: iohexoL-300 100 ML VIAL IVP ONE (14:25)
[2023-10-21 14:29] LABS: WBC CLUMPS,URINE PRESENT; WBC,URINE >25 /HPF (0-5)
[2023-10-21 14:30] LABS: BACTERIA,URINE Moderate /HPF (None Seen); RBC,URINE 0-5 /HPF (0-5); SQUAMOUS EPITHELIAL CELL,UR FEW Squamous (<= Few)
[2023-10-21] MEDS ORDERED: cefTRIAXone 1 GM VIAL IVP STA (15:13)
--- NOTE | 2023-10-21 15:21 | CT Report ---
PROCEDURE: ABDOMEN/PELVIS W INDICATIONS: abd pain acute today CONTRAST: 100ml Omni 300 TECHNIQUE: After the administration of intravenous contrast, 5 mm thick sections acquired from the diaphragms to the symphysis. 5 mm thick coronal and sagittal reformats were acquired. For radiation dose reducti on, the following was used: automated exposure control, adjustment of mA and/or kV according to jose m ent size. COMPARISON: CT abdomen pelvis 04/28/2020 FINDINGS: Image quality: Streak artifact from surgical clips and hip arthroplasties limits evaluation.. Lung bases and heart: Left lower lobe consolidative opacity. Liver: Low-density lesion within the posterior right hepatic lobe, evaluation limited secondary strea k artifact.. Gallbladder and biliary tree: Surgically absent Spleen: No splenomegaly. Pancreas: No pancreatic ductal dilation. Adrenals: No adrenal nodule. Kidneys and ureters: No hydronephrosis. No renal cystic lesion which requires follow up. No solid mas s. Bowel and peritoneum: No bowel distension. Stool ball in the rectum measuring up to 8 cm. Diverticulo sis without evidence of acute diverticulitis. Large burden of stool throughout the colon. Small bowel sutures are noted. No pathologic free fluid. Surgical clips within the left upper quadrant. Lymph nodes: No central or retroperitoneal adenopathy. Vessels: No infrarenal aortic aneurysm. Atherosclerotic vascular calcifications. PELVIS: Bilateral hip arthroplasties limits evaluation pelvis. Reproductive organs: Cystic structures within the bilateral adnexa/ovaries measuring up to 5.7 cm on the right and 3.8 cm on the left.. Bladder: No abnormal wall thickening, accounting for underdistension. Pelvic lymph nodes: No pelvic adenopathy by size criteria. Bones: No aggressive osseous abnormality. Bilateral hip arthroplasties in place. Decreased osseous mi neralization. Degenerative changes of the spine. Grade I anterolisthesis of L4 on L5. Other: Anterior abdominal hernia containing a loop of colon without evidence of obstruction. IMPRESSION: 1.Left lower lobe pulmonary consolidation, consistent with pneumonia. 2.Large burden of stool throughout the colon with a stool ball in rectum measuring 8 cm, correlate fo r constipation and impaction. 3.Cysts within the bilateral adnexa/ovaries measure up to 5.7 cm. Given patient age, pelvic ultrasoun d is recommended for further evaluation as well as to exclude ovarian torsion. 4.Diverticulosis without evidence of acute diverticulitis. 5.Anterior abdominal hernia containing a small portion of colon without evidence of obstruction. 6.Indeterminate low-density lesion within the posterior right hepatic lobe is again noted and similar to prior, recommend ultrasound for further evaluation. Reviewed by: Jame Penn MD on 10/21/2023 3:20 PM PST Approved by: Jame Penn MD on 10/21/2023 3:20 PM PST Station ID: [id number]
[2023-10-21] MEDS ORDERED: AZITHROMYCIN INJ 500 MG in SODIUM CHLORIDE 0.9% 250 ML IV STA (16:05)
[2023-10-21] MEDS ORDERED: LACTULOSE 10 GM /15 ML UDC PO STA (16:06)
[2023-10-21] MEDS: ACETAMINOPHEN 325 MG TABLET PO SCH ×2 (18:28→22:22)
--- NOTE | 2023-10-21 21:07 | ED Physician Documentation ---
ED Addendum - Addendum Addendum: 10/21/23 21:06 Patient was signed out to me by Dr. Marcano awaiting consultation with the hospitalist for admission. I spoke with the nighttime hospitalist who accepts. The patient will be admitted for further care. This document was made in part using voice recognition software. While efforts are made to proofread this document, sound alike and grammatical errors may occur. Departure - Departure Disposition: 66 [facility] DC/Xfer Clinical Impression: Confusion, Weakness, Hypoxia UTI (urinary tract infection) Qualifiers: Urinary tract infection type: acute cystitis Hematuria presence: without hematuria Qualified Code(s): N30.00 - Acute cystitis without hematuria Pneumonia Qualifiers: Pneumonia type: due to unspecified organism Laterality: left Lung location: lower lobe of lung Qualified Code(s): J18.9 - Pneumonia, unspecified organism Fever Qualifiers: Fever type: unspecified Qualified Code(s): R50.9 - Fever, unspecified Condition: Stable Forms: PCP List
--- NOTE | 2023-10-21 21:58 | HISTORY & PHYSICAL EXAMINATION ---
Chief Complaint - Chief Complaint Chief Complaint: fever, confusion History of Present Illness - Admitted From Admitted From:: SNF - History Obtained From History obtained from: patient Exam Limitations: telemedicine, dementia - History of Present Illness HPI Comment/Other: Ms Moseley is a 78 yo F with hx dementia, prior strokes. Resides at [facility]. History obtained from patient and chart review. Per report patient is baseline ambulatory with a walker and conversant/interactive, today she was weaker and confused and had a fever at the facility. Per report she has not had any cough or respiratory symptoms. No vomiting or diarrhea. Limited ROS, pt is limited historian due to underlying history of de mentia. She is currently on 1 L NC. She did have a dry cough during our video call. Chronic pain in L shoulder related to arthritis. Per report earlier there was concern for abdominal pain, patient denies at this time. RN at bedside. History - Past Medical History Cardiovascular: reports: Hypertension Respiratory: reports: None Neuro: reports: Dementia Endocrine/Autoimmune: reports: None Musculoskeletal: reports: Osteoarthritis - Family & Social History Living Situation: Alone - POLST Patient has POLST: Yes POLST Status: DNR Meds/Allgy - Home Medications Home Medications: Ambulatory Orders Medication Instructions Recorded Confirmed Albuterol Sulf [Ventolin Hfa 2 puffs INH Q6HR PRN 04/24/22 10/21/23 Inhaler] Bisacodyl Supp [Dulcolax Supp] 10 mg MT PRN PRN 04/24/22 10/21/23 Docusate Sodium 100Mg Capsule 100 mg PO BID 04/24/22 10/21/23 [Colace 100Mg Capsule] Duloxetine HCl [Cymbalta] 30 mg PO BID 04/24/22 10/21/23 Fexofenadine HCl [Allergy Relief] 60 mg PO BID 04/24/22 10/21/23 Fluticasone Furoate [Arnuity 1 puffs IH DAILY 04/24/22 10/21/23 Ellipta] Furosemide [Lasix] 40 mg PO .[id number] 04/24/22 10/21/23 Hydrocortisone 1% Cream 1 applic TOP Q6HR PRN 04/24/22 10/21/23 [Hydrocortisone] Metoprolol Succinate [Toprol Xl] 25 mg PO DAILY 04/24/22 10/21/23 Mineral Oil [Mineral Oil Enema] 1 ea RC PRN PRN 04/24/22 10/21/23 Montelukast Sodium 10 mg PO DAILY PM 04/24/22 10/21/23 Senna [Senokot] 2 tab PO PRN PRN 04/24/22 10/21/23 fentaNYL 12 MCG PATCH [Duragesic 1 each TD Q3D 6 Days #2 patch 04/25/22 10/21/23 12mcg patch] oxyCODONE [Roxicodone] 5 mg PO Q6H #25 tablet 04/25/22 10/21/23 polyethylene glycoL 3350(BULK) 17 gm PO DAILY PRN #1 bottle 04/25/22 10/21/23 [Miralax] Acetaminophen [Acetaminophen Extra 1,000 mg PO TID 10/21/23 10/21/23 Strength] Aspirin [[place] Aspirin] 81 mg PO DAILY 10/21/23 10/21/23 Azelastine HCl 2 spray NS BID 10/21/23 10/21/23 Diclofenac Sodium 1% Gel [Voltaren 2 gm TOP QID 10/21/23 10/21/23 Gel] Gabapentin [Neurontin] 300 mg PO HS 10/21/23 10/21/23 Ipratropium/Albuterol [Duoneb] 3 ml INH Q4H PRN 10/21/23 10/21/23 Melatonin 5 mg PO HS PRN 10/21/23 10/21/23 Naloxone HCl [Narcan] 4 mg NS ONCE PRN 10/21/23 10/21/23 Omeprazole 40 mg PO DAILY 10/21/23 10/21/23 fentaNYL [Fentanyl 25mcg patch] 1 each TD .Q72HR 10/21/23 10/21/23 - Allergies Allergies/Adverse Reactions: Allergies Allergy/AdvReac Type Severity Reaction Status Date / Time codeine Allergy Nausea Verified 10/21/23 12:04 Penicillins Allergy Rash Verified 10/21/23 12:04 Review of Systems - Constitutional Constitutional: reports: Fatigue, Fever, Weakness - Cardiovascular Cariovascular: denies: Chest pain - Respiratory Respiratory: reports: Cough. denies: Sputum production - Gastrointestinal Gastrointestinal: reports: Constipation (noted on CT abd). denies: Abdominal pain (per report there was concern for abd pain earlier in the ER visit, currently patient denies), Nausea, Vomiting - Genitourinary Genitourinary: reports: Other - Neurological Neurological: reports: General weakness - Other Findings Other Findings: LIMITED ROS due to patient with dementia. Exam - Vital Signs Reviewed Vital Signs: Yes Vital Signs: Vital Signs x48h Temp Pulse Resp BP Pulse Ox O2 Flow Rate 10/21/23 19:30 91 18 114/71 96 1 10/21/23 19:00 99 25 H 125/89 H 96 3 10/21/23 18:30 36.5 C 85 18 97/62 95 2 10/21/23 18:00 92 18 98/66 95 2 10/21/23 17:30 92 18 93/63 95 2 10/21/23 17:00 96 19 92/65 89 L 10/21/23 16:30 101 H 16 96/70 96 3 10/21/23 16:00 108 H 16 104/69 95 3 10/21/23 15:30 107 H 16 100/66 95 3 10/21/23 15:00 107 H 16 92/69 94 3 10/21/23 14:05 38.7 C H 102 H 94 3 10/21/23 14:00 102 H 15 112/69 88 L Sepsis Event Note (H) - Evaluation Current Stage of Sepsis: Sepsis Possible source of Sepsis: positive: Pulmonary, Genitourinary - Sepsis Criteria Sepsis Criteria: Recorded Temperature greater than 38.3C or Less than 36C, Recorded Heart Rate greater than 90 bpm, WBC count greater than 12,000 or less than 4000 Conclusion/Plan - Lab Results Fish Bones: 10/21/23 12:18 10/21/23 12:18 - Other Other Results/Comments: Assessment/Plan: Sepsis, present at admission, secondary to LLL pneumonia and UTI -Patient presents with fever, tachycardia, leukocytosis -UA positive for signs of infection, LLL consolidation on imaging -Patient has received IV ceftriaxone and IV azithromycin in ER -Continue antibiotics -Continue gentle IV fluids hydration -Trend labs -Currently on 1 L NC, continue to wean as tolerated Hx dementia -Pt resides at [facility] *Per RN there is no med rec from [facility] to verify her current med list, home med rec pending Full code *No code status documentation from SNF per RN Telemedicine Consult Details - Provider Location & Consult Time Telemedicine consultation conducted via videoconferencing?: Yes List names and roles of persons who participated in consult:: Mann Rashid MD, bedside RN Telemedicine provider location:: [place]
[2023-10-21] MEDS ORDERED: SODIUM CHLORIDE FLUSH 0.9% 10 ML SYRINGE IVP PRN (22:50)
[2023-10-21] MEDS ORDERED: ONDANSETRON 4 MG/2 ML VIAL IVP PRN (22:50)
[2023-10-21] MEDS ORDERED: ACETAMINOPHEN 325 MG TABLET PO PRN (22:53)
[2023-10-22] MEDS: SODIUM CHLORIDE FLUSH 0.9% 10 ML SYRINGE IVP SCH ×3 (01:26→18:06)
[2023-10-22] MEDS: oxyCODONE 5 MG TABLET PO PRN ×3 (04:34→21:03)
[2023-10-22 06:23] LABS: HCT - HEMATOCRIT 34.9 % (37.0-47.0); MEAN CORPUSCULAR HEMOGLOBIN 30.6 pg (27.0-31.0); MEAN CORPUSCULAR HGB CONC 31.5 g/dL (32.0-36.0); MEAN CORPUSCULAR VOLUME 97.2 fL (81.0-99.0); MEAN PLATELET VOLUME 10.3 fL (7.9-10.8); RED BLOOD COUNT 3.59 10^6/uL (4.20-5.40); RED CELL DISTRIBUTION WIDTH 12.9 % (12.0-15.0); WHITE BLOOD COUNT 12.7 x10^3/uL (4.8-10.8)
[2023-10-22 06:48] LABS: CALCIUM 8.9 mg/dL (8.5-10.3); CREATININE 0.6 mg/dL (0.6-1.3); POTASSIUM 3.6 mmol/L (3.5-4.5)
[2023-10-22] MEDS: ENOXAPARIN 40 MG/0.4 ML SYRINGE SUBQ SCH (10:26)
--- NOTE | 2023-10-22 10:55 | PHARMACY PROGRESS NOTE ---
- Best Possible Medication History Admit Date and Time: 10/21/23 3606 Processed by: Pharmacy Medication History completed: Yes Secondary Source(s): Facility MAR as ONLY source As the person ultimately responsible for medication therapy, providers are able to order a medication from an existing home medication list in [facility] via the "Reconcile Routine" prior to Confirmation of that medication by arch support maker. Such practice is discouraged except when the physician, in their clinical judgment, deems that a medical need exists for a medication without regard to previous use.
--- NOTE | 2023-10-22 13:37 | PROVIDER PROGRESS NOTE ---
Assessment/Plan - Problem List (1) Pneumonia Qualifiers: Pneumonia type: due to unspecified organism Laterality: left Lung location: lower lobe of lung Qualified Code(s): J18.9 - Pneumonia, unspecified organism Assessment/Plan: --Continue IV ceftriaxone and azithromycin. --Repeat CXR in 4-6 weeks. --Not hypoxic this AM. (2) UTI (urinary tract infection) Qualifiers: Urinary tract infection type: acute cystitis Hematuria presence: without hematuria Qualified Code(s): N30.00 - Acute cystitis without hematuria Assessment/Plan: --Continue IV ceftriaxone. --Urine culture pending. - Current Meds Current Meds: Current Medications Generic Name Dose Route Start Last Admin Trade Name Freq PRN Reason Stop Dose Admin Acetaminophen 650 mg 10/21/23 22:53 10/22/23 10:42 Acetaminophen 325 Mg Tablet PO 650 mg QID PRN Administration FEVER > 100.5 F Enoxaparin Sodium 40 mg 10/22/23 09:00 10/22/23 10:26 Enoxaparin 40 Mg/0.4 Ml Syringe SUBQ 40 mg DAILY KIM Administration Oxycodone HCl 5 mg 10/22/23 02:52 10/22/23 12:51 Oxycodone 5 Mg Tablet PO 5 mg Q8HR PRN Administration Moderate Pain (Level 4-6) Sodium Chloride 10 ml 10/22/23 01:00 10/22/23 10:27 Sodium Chloride Flush 0.9% 10 Ml Syringe IVP 10 ml 0100,0900,1700 KIM Administration - Lab Result Fish Bone Diagrams: 10/22/23 05:57 10/22/23 05:57 Subjective - Subjective Patient Reports: Feeling Better, No Complaints Objective Vital Signs: Vital Signs - 24 hr 10/21/23 10/21/23 10/21/23 14:00 14:05 15:00 Temperature 38.7 C H Heart Rate 102 H 102 H 107 H Heart Rate [ Brachial] Respiratory 15 16 Rate Blood Pressure 112/69 92/69 Blood Pressure [Left Brachial artery] O2 Saturation 88 L 94 94 If not protocol 3 3 : Oxygen Flow, liters/minute 10/21/23 10/21/23 10/21/23 15:30 16:00 16:30 Temperature Heart Rate 107 H 108 H 101 H Heart Rate [ Brachial] Respiratory 16 16 16 Rate Blood Pressure 100/66 104/69 96/70 Blood Pressure [Left Brachial artery] O2 Saturation 95 95 96 If not protocol 3 3 3 : Oxygen Flow, liters/minute 10/21/23 10/21/23 10/21/23 17:00 17:30 18:00 Temperature Heart Rate 96 92 92 Heart Rate [ Brachial] Respiratory 19 18 18 Rate Blood Pressure 92/65 93/63 98/66 Blood Pressure [Left Brachial artery] O2 Saturation 89 L 95 95 If not protocol 2 2 : Oxygen Flow, liters/minute 10/21/23 10/21/23 10/21/23 18:30 19:00 19:30 Temperature 36.5 C Heart Rate 85 99 91 Heart Rate [ Brachial] Respiratory 18 25 H 18 Rate Blood Pressure 97/62 125/89 H 114/71 Blood Pressure [Left Brachial artery] O2 Saturation 95 96 96 If not protocol 2 3 1 : Oxygen Flow, liters/minute 10/21/23 10/21/23 10/22/23 22:00 22:30 00:20 Temperature Heart Rate 82 78 Heart Rate [ Brachial] Respiratory 12 12 Rate Blood Pressure 104/62 104/62 Blood Pressure [Left Brachial artery] O2 Saturation 97 98 If not protocol 2 2 2 : Oxygen Flow, liters/minute 10/22/23 10/22/23 00:26 08:14 Temperature 36.7 C 36.5 C Heart Rate Heart Rate [ 75 79 Brachial] Respiratory 20 18 Rate Blood Pressure Blood Pressure 111/63 143/77 H [Left Brachial artery] O2 Saturation 94 93 If not protocol : Oxygen Flow, liters/minute Oxygen O2 Source Room air I&O (Last 24 Hrs): Intake and Output Totals x24h 10/20/23 10/21/23 10/22/23 23:59 23:59 23:59 Intake Total 2250 720 Output Total 200 Balance 2250 520 General: Alert, Oriented x3 Cardiovascular: Regular rate, Normal S1, Normal S2 Respiratory: Chest non-tender, No respiratory distress Abdomen: Normal bowel sounds, Soft, No tenderness - Results Results: Laboratory Results WBC 12.7 x10^3/uL (4.8-10.8) H 10/22/23 05:57 RBC 3.59 10^6/uL (4.20-5.40) L 10/22/23 05:57 Hgb 11.0 g/dL (12.0-16.0) L 10/22/23 05:57 Hct 34.9 % (37.0-47.0) L 10/22/23 05:57 MCV 97.2 fL (81.0-99.0) 10/22/23 05:57 MCH 30.6 pg (27.0-31.0) 10/22/23 05:57 MCHC 31.5 g/dL (32.0-36.0) L 10/22/23 05:57 RDW 12.9 % (12.0-15.0) 10/22/23 05:57 Plt Count 225 10^3/uL (130-450) 10/22/23 05:57 MPV 10.3 fL (7.9-10.8) 10/22/23 05:57 Neut # (Auto) 13.7 10^3/uL (1.5-6.6) H 10/21/23 12:18 Lymph # (Auto) 0.7 10^3/uL (1.5-3.5) L 10/21/23 12:18 [place] # (Auto) 0.9 10^3/uL (0.0-1.0) 10/21/23 12:18 Eos # (Auto) 0.1 10^3/uL (0.0-0.7) 10/21/23 12:18 Baso # (Auto) 0.1 10^3/uL (0.0-0.1) 10/21/23 12:18 Absolute Nucleated RBC 0.00 x10^3/uL 10/21/23 12:18 Nucleated RBC % 0.0 /100WBC 10/21/23 12:18 Sodium 137 mmol/L (135-145) 10/22/23 05:57 Potassium 3.6 mmol/L (3.5-4.5) 10/22/23 05:57 Chloride 105 mmol/L (101-111) 10/22/23 05:57 Carbon Dioxide 27 mmol/L (21-32) 10/22/23 05:57 Anion Gap 5.0 (6-13) L 10/22/23 05:57 BUN 17 mg/dL (6-20) 10/22/23 05:57 Creatinine 0.6 mg/dL (0.6-1.3) 10/22/23 05:57 Estimated GFR (MDRD) 96 (>89) 10/22/23 05:57 Glucose 101 mg/dL (74-104) 10/22/23 05:57 Lactic Acid 2.0 mmol/L (0.5-2.2) 10/21/23 12:18 Calcium 8.9 mg/dL (8.5-10.3) 10/22/23 05:57 Magnesium 1.4 mg/dL (1.7-2.3) L 10/21/23 12:18 Total Bilirubin 0.8 mg/dL (0.2-1.0) 10/21/23 12:18 AST 11 IU/L (10-42) 10/21/23 12:18 ALT 7 IU/L (10-60) L 10/21/23 12:18 Alkaline Phosphatase 72 IU/L (42-121) 10/21/23 12:18 Total Protein 6.2 g/dL (6.4-8.9) L 10/21/23 12:18 Albumin 3.5 g/dL (3.2-5.5) 10/21/23 12:18 Globulin 2.7 g/dL (2.1-4.2) 10/21/23 12:18 Albumin/Globulin Ratio 1.3 (1.0-2.2) 10/21/23 12:18 Lipase < 10 U/L (11-82) L 10/21/23 12:18 Urine Color YELLOW 10/21/23 14:02 Urine Clarity SL. CLOUDY (CLEAR) 10/21/23 14:02 Urine pH 5.5 PH (5.0-7.5) 10/21/23 14:02 Ur Specific [place] 1.025 (1.002-1.030) 10/21/23 14:02 Urine Protein NEGATIVE mg/dL (NEGATIVE) 10/21/23 14:02 Urine Glucose (UA) NEGATIVE mg/dL (NEGATIVE) 10/21/23 14:02 Urine Ketones NEGATIVE mg/dL (NEGATIVE) 10/21/23 14:02 Urine Occult Blood TRACE-INTA (NEGATIVE) 10/21/23 14:02 Urine Nitrite NEGATIVE (NEGATIVE) 10/21/23 14:02 Urine Bilirubin NEGATIVE (NEGATIVE) 10/21/23 14:02 Urine Urobilinogen 1 (NORMAL) E.U./dL (NORMAL) 10/21/23 14:02 Ur Leukocyte Esterase LARGE (NEGATIVE) H 10/21/23 14:02 Urine RBC 0-5 /HPF (0-5) 10/21/23 14:02 Urine WBC >25 /HPF (0-5) H 10/21/23 14:02 Urine WBC Clumps PRESENT 10/21/23 14:02 Ur Squamous Epith Cells FEW Squamous (<= Few) 10/21/23 14:02 Urine Bacteria Moderate /HPF (None Seen) H 10/21/23 14:02 Ur Microscopic Review INDICATED 10/21/23 14:02 Urine Culture Comments INDICATED 10/21/23 14:02 Nasal Adenovirus (PCR) NOT DETECTED 10/21/23 12:18 Nasal B. parapertussis DNA (PCR) NOT DETECTED 10/21/23 12:18 Nasal Coronavir 229E PCR NOT DETECTED 10/21/23 12:18 Nasal Coronavir HKU1 PCR NOT DETECTED 10/21/23 12:18 Nasal Coronavir NL63 PCR NOT DETECTED 10/21/23 12:18 Nasal Coronavir OC43 PCR NOT DETECTED 10/21/23 12:18 Nasal Enterovir/Rhinovir PCR NOT DETECTED 10/21/23 12:18 Nasal Influenza B PCR NOT DETECTED 10/21/23 12:18 Nasal Influenza A PCR NOT DETECTED 10/21/23 12:18 Nasal Parainfluen 1 PCR NOT DETECTED 10/21/23 12:18 Nasal Parainfluen 2 PCR NOT DETECTED 10/21/23 12:18 Nasal Parainfluen 3 PCR NOT DETECTED 10/21/23 12:18 Nasal Parainfluen 4 PCR NOT DETECTED 10/21/23 12:18 Nasal RSV (PCR) NOT DETECTED 10/21/23 12:18 Nasal B.pertussis DNA PCR NOT DETECTED 10/21/23 12:18 Nasal C.pneumoniae (PCR) NOT DETECTED 10/21/23 12:18 Juan Human Metapneumo PCR NOT DETECTED 10/21/23 12:18 Nasal M.pneumoniae (PCR) NOT DETECTED 10/21/23 12:18 Nasal SARS-CoV-2 (PCR) NOT DETECTED 10/21/23 12:18 Sepsis Event Note (H) - Evaluation Current Stage of Sepsis: Sepsis Possible source of Sepsis: positive: Pulmonary, Genitourinary - Sepsis Criteria Sepsis Criteria: Recorded Temperature greater than 38.3C or Less than 36C, Recorded Heart Rate greater than 90 bpm, WBC count greater than 12,000 or less than 4000 ABX Reporting Has patient been on IV antibiotics over the past 48 hours?: No Current Medications - Current Medications Current Medications: Active Medications Generic Name Dose Route Start Last Admin Trade Name Freq PRN Reason Stop Dose Admin Acetaminophen 650 mg 10/21/23 22:53 10/22/23 10:42 Acetaminophen 325 Mg Tablet PO 650 mg QID PRN Administration FEVER > 100.5 F Enoxaparin Sodium 40 mg 10/22/23 09:00 10/22/23 10:26 Enoxaparin 40 Mg/0.4 Ml Syringe SUBQ 40 mg DAILY KIM Administration Azithromycin 500 mg/ Sodium 250 mls @ 250 mls/hr 10/22/23 22:00 Chloride IV Q24H KIM Ceftriaxone Sodium 1 gm/ 100 mls @ 200 mls/hr 10/22/23 22:00 Sodium Chloride IV Q24H KIM Ondansetron HCl 4 mg 10/21/23 22:50 Ondansetron 4 Mg/2 Ml Vial IVP Q6HR PRN Nausea / Vomiting Oxycodone HCl 5 mg 10/22/23 02:52 10/22/23 12:51 Oxycodone 5 Mg Tablet PO 5 mg Q8HR PRN Administration Moderate Pain (Level 4-6) Sodium Chloride 10 ml 10/21/23 22:50 Sodium Chloride Flush 0.9% 10 Ml Syringe IVP PRN PRN NEEDED PER PROVIDER ORDERS Sodium Chloride 10 ml 10/22/23 01:00 10/22/23 10:27 Sodium Chloride Flush 0.9% 10 Ml Syringe IVP 10 ml 0100,0900,1700 KIM Administration Albuterol Sulf [Ventolin Hfa Inhaler] 2 puffs INH Q6HR PRN 04/24/22 Bisacodyl Supp [Dulcolax Supp] 10 mg OK PRN PRN 04/24/22 Docusate Sodium 100Mg Capsule [Colace 100Mg Capsule] 100 mg PO Q12H 04/24/22 Duloxetine HCl [Cymbalta] 30 mg PO BID 04/24/22 Fexofenadine HCl [Allergy Relief] 60 mg PO Q12H 04/24/22 Fluticasone Furoate [Arnuity Ellipta] 1 puffs IH DAILY 04/24/22 Furosemide [Lasix] 40 mg PO .[id number] 04/24/22 Hydrocortisone 1% Cream [Hydrocortisone] 1 applic TOP Q6HR PRN 04/24/22 Metoprolol Succinate [Toprol Xl] 25 mg PO DAILY 04/24/22 Mineral Oil [Mineral Oil Enema] 1 ea RC PRN PRN 04/24/22 Montelukast Sodium 10 mg PO DAILY PM 04/24/22 Senna [Senokot] 2 tab PO PRN PRN 04/24/22 Acetaminophen [Acetaminophen Extra Strength] 1,000 mg PO TID 10/21/23 Aspirin [[place] Aspirin] 81 mg PO DAILY 10/21/23 Azelastine HCl 2 spray NS BID 10/21/23 Diclofenac Sodium 1% Gel [Voltaren Gel] 2 gm TOP QID 10/21/23 Gabapentin [Neurontin] 300 mg PO HS 10/21/23 Ipratropium/Albuterol [Duoneb] 3 ml INH Q4H PRN 10/21/23 Melatonin 5 mg PO HS PRN 10/21/23 Naloxone HCl [Narcan] 4 mg NS ONCE PRN 10/21/23 Omeprazole 40 mg PO DAILY 10/21/23 fentaNYL [Fentanyl 25mcg patch] 1 each TD .Q72HR 10/21/23 Senna [Senokot] 8.6 mg PO Q24H PRN 10/22/23 guaiFENesin [Chest Congestion Relief] 10 ml PO Q4H PRN 10/22/23
[2023-10-22] MEDS ORDERED: cefTRIAXone 1 GM in SODIUM CHLORIDE 0.9% MINIBAG 100 ML IV SCH (16:00)
[2023-10-22] MEDS ORDERED: AZITHROMYCIN INJ 500 MG in SODIUM CHLORIDE 0.9% 250 ML IV SCH (17:00)
[2023-10-23] MEDS: SODIUM CHLORIDE FLUSH 0.9% 10 ML SYRINGE IVP SCH ×3 (00:46→16:41)
[2023-10-23] MEDS: ACETAMINOPHEN 325 MG TABLET PO PRN ×2 (02:14→21:37)
[2023-10-23] MEDS: oxyCODONE 5 MG TABLET PO PRN ×2 (05:12→16:40)
[2023-10-23] MEDS: ENOXAPARIN 40 MG/0.4 ML SYRINGE SUBQ SCH (08:17)
[2023-10-23] MEDS: levoFLOXacin 750 MG TABLET PO SCH (12:36)
[2023-10-23 13:09] LABS: BASOPHILS % (AUTO) 0.3 %; EOSINOPHILS # (AUTO) 0.2 10^3/uL (0.0-0.7); HCT - HEMATOCRIT 34.7 % (37.0-47.0); HGB - HEMOGLOBIN 10.9 g/dL (12.0-16.0); LYMPHOCYTES % (AUTO) 12.6 %; MEAN CORPUSCULAR HEMOGLOBIN 30.4 pg (27.0-31.0); MEAN CORPUSCULAR HGB CONC 31.4 g/dL (32.0-36.0); MEAN CORPUSCULAR VOLUME 96.7 fL (81.0-99.0); MEAN PLATELET VOLUME 10.2 fL (7.9-10.8); MONOCYTES # (AUTO) 0.6 10^3/uL (0.0-1.0); MONOCYTES % (AUTO) 7.4 %; NEUTROPHILS # (AUTO) 5.9 10^3/uL (1.5-6.6); NEUTROPHILS % (AUTO) 76.2 %; PLT - PLATELET COUNT 242 10^3/uL (130-450); RED BLOOD COUNT 3.59 10^6/uL (4.20-5.40); WHITE BLOOD COUNT 7.7 x10^3/uL (4.8-10.8)
[2023-10-23 13:24] LABS: CALCIUM 9.4 mg/dL (8.5-10.3); CREATININE 0.5 mg/dL (0.6-1.3)
--- NOTE | 2023-10-23 16:00 | PROVIDER PROGRESS NOTE ---
Assessment/Plan - Problem List (1) Pneumonia Qualifiers: Pneumonia type: due to unspecified organism Laterality: left Lung location: lower lobe of lung Qualified Code(s): J18.9 - Pneumonia, unspecified organism Assessment/Plan: (1) Pneumonia Qualifiers: Pneumonia type: due to unspecified organism Laterality: left Lung lo cation: lower lobe of lung Qualified Code(s): J18.9 - Pneumonia, unspecified organism Assessment/Plan: --Switched to Levofloxacin based on urine culture sensitivities. --Repeat CXR in 4-6 weeks. --Not hypoxic this AM. (2) UTI (urinary tract infection) Qualifiers: Urinary tract infection type: acute cystitis Hematuria presence: without hematuria Qualified Code(s): N30.00 - Acute cystitis without hematuria Assessment/Plan: --Pseudomonas on urine culture. Switched to levofloxacin. Dispo: Stable for discharge. Pending facility. (2) UTI (urinary tract infection) Qualifiers: Urinary tract infection type: acute cystitis Hematuria presence: without hematuria Qualified Code(s): N30.00 - Acute cystitis without hematuria - Current Meds Current Meds: Current Medications Generic Name Dose Route Start Last Admin Trade Name Freq PRN Reason Stop Dose Admin Acetaminophen 650 mg 10/23/23 01:01 10/23/23 02:14 Acetaminophen 325 Mg Tablet PO 650 mg QID PRN Administration PAIN 1-4 Enoxaparin Sodium 40 mg 10/22/23 09:00 10/23/23 08:17 Enoxaparin 40 Mg/0.4 Ml Syringe SUBQ 40 mg DAILY IKM Administration Levofloxacin 750 mg 10/23/23 11:00 10/23/23 12:36 Levofloxacin 750 Mg Tablet PO 750 mg DAILY KIM Administration Oxycodone HCl 5 mg 10/22/23 02:52 10/23/23 05:12 Oxycodone 5 Mg Tablet PO 5 mg Q8HR PRN Administration Moderate Pain (Level 4-6) Sodium Chloride 10 ml 10/22/23 01:00 10/23/23 08:20 Sodium Chloride Flush 0.9% 10 Ml Syringe IVP 10 ml 0100,0900,1700 KIM Administration - Lab Result Fish Bone Diagrams: 10/23/23 12:59 10/23/23 12:59 - Additional Planning My Orders: My Active Orders 10/23/23 11:00 levoFLOXacin 750 mg PO DAILY 12/20/23 15:58 IV DC [IV Discontinuation] [RC] .ONCE 10/24/23 05:00 BMP - BASIC METABOLIC PANEL [CHEM] DAILYLAB CBC [CBC - COMP BLD CT W/AUTO DIFF] [HEME] DAILYLAB 10/25/23 05:00 BMP - BASIC METABOLIC PANEL [CHEM] DAILYLAB CBC [CBC - COMP BLD CT W/AUTO DIFF] [HEME] DAILYLAB 10/26/23 05:00 BMP - BASIC METABOLIC PANEL [CHEM] DAILYLAB CBC [CBC - COMP BLD CT W/AUTO DIFF] [HEME] DAILYLAB 10/27/23 05:00 BMP - BASIC METABOLIC PANEL [CHEM] DAILYLAB CBC [CBC - COMP BLD CT W/AUTO DIFF] [HEME] DAILYLAB 10/28/23 05:00 BMP - BASIC METABOLIC PANEL [CHEM] DAILYLAB CBC [CBC - COMP BLD CT W/AUTO DIFF] [HEME] DAILYLAB Subjective - Subjective Patient Reports: Feeling Better, Resting Comfortably, No Complaints Objective Vital Signs: Vital Signs - 24 hr 10/23/23 10/23/23 10/23/23 00:34 08:00 15:38 Temperature 36.7 C 36.6 C 36.7 C Heart Rate [ 107 H 74 78 Brachial] Respiratory 24 20 20 Rate Blood Pressure 168/88 H 147/80 H 173/94 H [Left Brachial artery] O2 Saturation 95 94 95 Oxygen O2 Source Room air I&O (Last 24 Hrs): Intake and Output Totals x24h 10/21/23 10/22/23 10/23/23 23:59 23:59 23:59 Intake Total 2250 1940 468 Output Total 400 250 Balance 2250 1540 218 Neuro: Alert, CN 2-12 Grossly Intact, Oriented Times 3 Cardiovascular: Regular rate, Normal S1, Normal S2, No murmurs Respiratory: Chest non-tender, No respiratory distress, Breath sounds nml Abdomen: Normal bowel sounds, Soft, No tenderness, No hepatospenomegaly, No masses - Results Results: Laboratory Results WBC 7.7 x10^3/uL (4.8-10.8) 10/23/23 12:59 RBC 3.59 10^6/uL (4.20-5.40) L 10/23/23 12:59 Hgb 10.9 g/dL (12.0-16.0) L 10/23/23 12:59 Hct 34.7 % (37.0-47.0) L 10/23/23 12:59 MCV 96.7 fL (81.0-99.0) 10/23/23 12:59 MCH 30.4 pg (27.0-31.0) 10/23/23 12:59 MCHC 31.4 g/dL (32.0-36.0) L 10/23/23 12:59 RDW 13.0 % (12.0-15.0) 10/23/23 12:59 Plt Count 242 10^3/uL (130-450) 10/23/23 12:59 MPV 10.2 fL (7.9-10.8) 10/23/23 12:59 Neut # (Auto) 5.9 10^3/uL (1.5-6.6) 10/23/23 12:59 Lymph # (Auto) 1.0 10^3/uL (1.5-3.5) L 10/23/23 12:59 [place] # (Auto) 0.6 10^3/uL (0.0-1.0) 10/23/23 12:59 Eos # (Auto) 0.2 10^3/uL (0.0-0.7) 10/23/23 12:59 Baso # (Auto) 0.0 10^3/uL (0.0-0.1) 10/23/23 12:59 Absolute Nucleated RBC 0.00 x10^3/uL 10/23/23 12:59 Nucleated RBC % 0.0 /100WBC 10/23/23 12:59 Sodium 137 mmol/L (135-145) 10/23/23 12:59 Potassium 4.0 mmol/L (3.5-4.5) 10/23/23 12:59 Chloride 104 mmol/L (101-111) 10/23/23 12:59 Carbon Dioxide 28 mmol/L (21-32) 10/23/23 12:59 Anion Gap 5.0 (6-13) L 10/23/23 12:59 BUN 9 mg/dL (6-20) 10/23/23 12:59 Creatinine 0.5 mg/dL (0.6-1.3) L 10/23/23 12:59 Estimated GFR (MDRD) 119 (>89) 10/23/23 12:59 Glucose 153 mg/dL (74-104) H 10/23/23 12:59 Lactic Acid 2.0 mmol/L (0.5-2.2) 10/21/23 12:18 Calcium 9.4 mg/dL (8.5-10.3) 10/23/23 12:59 Magnesium 1.4 mg/dL (1.7-2.3) L 10/21/23 12:18 Total Bilirubin 0.8 mg/dL (0.2-1.0) 10/21/23 12:18 AST 11 IU/L (10-42) 10/21/23 12:18 ALT 7 IU/L (10-60) L 10/21/23 12:18 Alkaline Phosphatase 72 IU/L (42-121) 10/21/23 12:18 Total Protein 6.2 g/dL (6.4-8.9) L 10/21/23 12:18 Albumin 3.5 g/dL (3.2-5.5) 10/21/23 12:18 Globulin 2.7 g/dL (2.1-4.2) 10/21/23 12:18 Albumin/Globulin Ratio 1.3 (1.0-2.2) 10/21/23 12:18 Lipase < 10 U/L (11-82) L 10/21/23 12:18 Urine Color YELLOW 10/21/23 14:02 Urine Clarity SL. CLOUDY (CLEAR) 10/21/23 14:02 Urine pH 5.5 PH (5.0-7.5) 10/21/23 14:02 Ur Specific [place] 1.025 (1.002-1.030) 10/21/23 14:02 Urine Protein NEGATIVE mg/dL (NEGATIVE) 10/21/23 14:02 Urine Glucose (UA) NEGATIVE mg/dL (NEGATIVE) 10/21/23 14:02 Urine Ketones NEGATIVE mg/dL (NEGATIVE) 10/21/23 14:02 Urine Occult Blood TRACE-INTA (NEGATIVE) 10/21/23 14:02 Urine Nitrite NEGATIVE (NEGATIVE) 10/21/23 14:02 Urine Bilirubin NEGATIVE (NEGATIVE) 10/21/23 14:02 Urine Urobilinogen 1 (NORMAL) E.U./dL (NORMAL) 10/21/23 14:02 Ur Leukocyte Esterase LARGE (NEGATIVE) H 10/21/23 14:02 Urine RBC 0-5 /HPF (0-5) 10/21/23 14:02 Urine WBC >25 /HPF (0-5) H 10/21/23 14:02 Urine WBC Clumps PRESENT 10/21/23 14:02 Ur Squamous Epith Cells FEW Squamous (<= Few) 10/21/23 14:02 Urine Bacteria Moderate /HPF (None Seen) H 10/21/23 14:02 Ur Microscopic Review INDICATED 10/21/23 14:02 Urine Culture Comments INDICATED 10/21/23 14:02 Nasal Adenovirus (PCR) NOT DETECTED 10/21/23 12:18 Nasal B. parapertussis DNA (PCR) NOT DETECTED 10/21/23 12:18 Nasal Coronavir 229E PCR NOT DETECTED 10/21/23 12:18 Nasal Coronavir HKU1 PCR NOT DETECTED 10/21/23 12:18 Nasal Coronavir NL63 PCR NOT DETECTED 10/21/23 12:18 Nasal Coronavir OC43 PCR NOT DETECTED 10/21/23 12:18 Nasal Enterovir/Rhinovir PCR NOT DETECTED 10/21/23 12:18 Nasal Influenza B PCR NOT DETECTED 10/21/23 12:18 Nasal Influenza A PCR NOT DETECTED 10/21/23 12:18 Nasal Parainfluen 1 PCR NOT DETECTED 10/21/23 12:18 Nasal Parainfluen 2 PCR NOT DETECTED 10/21/23 12:18 Nasal Parainfluen 3 PCR NOT DETECTED 10/21/23 12:18 Nasal Parainfluen 4 PCR NOT DETECTED 10/21/23 12:18 Nasal RSV (PCR) NOT DETECTED 10/21/23 12:18 Nasal B.pertussis DNA PCR NOT DETECTED 10/21/23 12:18 Nasal C.pneumoniae (PCR) NOT DETECTED 10/21/23 12:18 Juan Human Metapneumo PCR NOT DETECTED 10/21/23 12:18 Nasal M.pneumoniae (PCR) NOT DETECTED 10/21/23 12:18 Nasal SARS-CoV-2 (PCR) NOT DETECTED 10/21/23 12:18 Sepsis Event Note (H) - Evaluation Current Stage of Sepsis: Sepsis Possible source of Sepsis: positive: Pulmonary, Genitourinary - Sepsis Criteria Sepsis Criteria: Recorded Temperature greater than 38.3C or Less than 36C, Recorded Heart Rate greater than 90 bpm, WBC count greater than 12,000 or less than 4000 Current Medications - Current Medications Current Medications: Active Medications Generic Name Dose Route Start Last Admin Trade Name Freq PRN Reason Stop Dose Admin Acetaminophen 650 mg 10/23/23 01:01 10/23/23 02:14 Acetaminophen 325 Mg Tablet PO 650 mg QID PRN Administration PAIN 1-4 Enoxaparin Sodium 40 mg 10/22/23 09:00 10/23/23 08:17 Enoxaparin 40 Mg/0.4 Ml Syringe SUBQ 40 mg DAILY KIM Administration Levofloxacin 750 mg 10/23/23 11:00 10/23/23 12:36 Levofloxacin 750 Mg Tablet PO 750 mg DAILY KIM Administration Ondansetron HCl 4 mg 10/21/23 22:50 Ondansetron 4 Mg/2 Ml Vial IVP Q6HR PRN Nausea / Vomiting Oxycodone HCl 5 mg 10/22/23 02:52 10/23/23 05:12 Oxycodone 5 Mg Tablet PO 5 mg Q8HR PRN Administration Moderate Pain (Level 4-6) Sodium Chloride 10 ml 10/21/23 22:50 Sodium Chloride Flush 0.9% 10 Ml Syringe IVP PRN PRN NEEDED PER PROVIDER ORDERS Sodium Chloride 10 ml 10/22/23 01:00 10/23/23 08:20 Sodium Chloride Flush 0.9% 10 Ml Syringe IVP 10 ml 0100,0900,1700 KIM Administration Albuterol Sulf [Ventolin Hfa Inhaler] 2 puffs INH Q6HR PRN 04/24/22 Bisacodyl Supp [Dulcolax Supp] 10 mg MD PRN PRN 04/24/22 Docusate Sodium 100Mg Capsule [Colace 100Mg Capsule] 100 mg PO Q12H 04/24/22 Duloxetine HCl [Cymbalta] 30 mg PO BID 04/24/22 Fexofenadine HCl [Allergy Relief] 60 mg PO Q12H 04/24/22 Fluticasone Furoate [Arnuity Ellipta] 1 puffs IH DAILY 04/24/22 Furosemide [Lasix] 40 mg PO .[id number] 04/24/22 Hydrocortisone 1% Cream [Hydrocortisone] 1 applic TOP Q6HR PRN 04/24/22 Metoprolol Succinate [Toprol Xl] 25 mg PO DAILY 04/24/22 Mineral Oil [Mineral Oil Enema] 1 ea RC PRN PRN 04/24/22 Montelukast Sodium 10 mg PO DAILY PM 04/24/22 Senna [Senokot] 2 tab PO PRN PRN 04/24/22 Acetaminophen [Acetaminophen Extra Strength] 1,000 mg PO TID 10/21/23 Aspirin [[place] Aspirin] 81 mg PO DAILY 10/21/23 Azelastine HCl 2 spray NS BID 10/21/23 Diclofenac Sodium 1% Gel [Voltaren Gel] 2 gm TOP QID 10/21/23 Gabapentin [Neurontin] 300 mg PO HS 10/21/23 Ipratropium/Albuterol [Duoneb] 3 ml INH Q4H PRN 10/21/23 Melatonin 5 mg PO HS PRN 10/21/23 Naloxone HCl [Narcan] 4 mg NS ONCE PRN 10/21/23 Omeprazole 40 mg PO DAILY 10/21/23 fentaNYL [Fentanyl 25mcg patch] 1 each TD .Q72HR 10/21/23 Senna [Senokot] 8.6 mg PO Q24H PRN 10/22/23 guaiFENesin [Chest Congestion Relief] 10 ml PO Q4H PRN 10/22/23
[2023-10-23] MEDS ORDERED: COD LIVER OIL/ZINC OXIDE 113 GM TUBE TOP PRN (18:11)
[2023-10-23] MEDS ORDERED: LOPERAMIDE 2 MG CAPSULE PO PRN (18:21)
[2023-10-23] MEDS ORDERED: AZITHROMYCIN INJ 500 MG in SODIUM CHLORIDE 0.9% 250 ML IV SCH (21:00)
[2023-10-23] MEDS ORDERED: oxyCODONE 5 MG TABLET PO PRN (23:59)
[2023-10-24] MEDS: SODIUM CHLORIDE FLUSH 0.9% 10 ML SYRINGE IVP SCH ×2 (00:20→09:00)
[2023-10-24] MEDS ORDERED: cloNIDine 0.1 MG TABLET PO PRN (02:54)
[2023-10-24] MEDS ORDERED: fentaNYL 25 MCG PATCH TOP SCH (03:00)
[2023-10-24 05:30] LABS: BASOPHILS % (AUTO) 0.3 %; EOSINOPHILS # (AUTO) 0.1 10^3/uL (0.0-0.7); EOSINOPHILS % (AUTO) 1.4 %; HCT - HEMATOCRIT 35.1 % (37.0-47.0); HGB - HEMOGLOBIN 11.2 g/dL (12.0-16.0); LYMPHOCYTES # (AUTO) 0.9 10^3/uL (1.5-3.5); MEAN CORPUSCULAR HEMOGLOBIN 30.4 pg (27.0-31.0); MEAN CORPUSCULAR HGB CONC 31.9 g/dL (32.0-36.0); MEAN CORPUSCULAR VOLUME 95.4 fL (81.0-99.0); MEAN PLATELET VOLUME 10.6 fL (7.9-10.8); MONOCYTES # (AUTO) 0.6 10^3/uL (0.0-1.0); MONOCYTES % (AUTO) 7.1 %; NEUTROPHILS # (AUTO) 6.3 10^3/uL (1.5-6.6); NEUTROPHILS % (AUTO) 79.8 %; PLT - PLATELET COUNT 261 10^3/uL (130-450); RED BLOOD COUNT 3.68 10^6/uL (4.20-5.40); RED CELL DISTRIBUTION WIDTH 12.7 % (12.0-15.0); WHITE BLOOD COUNT 7.9 x10^3/uL (4.8-10.8)
[2023-10-24 05:46] LABS: CALCIUM 9.5 mg/dL (8.5-10.3); CREATININE 0.6 mg/dL (0.6-1.3); POTASSIUM 3.8 mmol/L (3.5-4.5)
[2023-10-24] MEDS: levoFLOXacin 750 MG TABLET PO SCH (08:59)
[2023-10-24] MEDS: ENOXAPARIN 40 MG/0.4 ML SYRINGE SUBQ SCH (08:59)
[2023-10-24] MEDS: oxyCODONE 5 MG TABLET PO PRN (09:08)
[2023-10-24] MEDS ORDERED: SACCHAROMYCES BOULARDII 250 MG CAPSULE PO SCH (09:30)
--- NOTE | 2023-10-24 11:24 | Discharge Plan ---
"Discharge Plan for SNF / [facility] - Discharge Plan And Transition Orders Problem Reviewed?: Yes Disposition: 03 SNF DC/Xfer Condition: Good Allergies and Adverse Reactions: Allergies Allergy/AdvReac Type Severity Reaction Status Date / Time codeine Allergy Nausea Verified 10/21/23 12:04 Penicillins Allergy Rash Verified 10/21/23 12:04 - SNF / [facility] Transition Orders Admit to (Facility): [facility] Discharge Diagnosis: UTI Pneumonia Medicare Certification Statement: I certify that Post Hospital assisted care is medically necessary on a co ntinuing basis for any of the conditions for which she/he is receiving care during hospitalization. Notify PCP of admission and forward orders to primary provider for signature. Weight on admission and: Daily Call PCP immediately if weight increases by: 5 kg Other Notification Orders: Call PCP immediately if patient develops dyspnea, chest pain/tightness or edema. House Bowel Program: Yes Additional Bowel Program Orders: If no BM after 2 days, nurse may give M.O.M. 30ml PO PRN and/or ducolax Supp 1 NV and/or MARINA 250mg P.O., and/or senna 1-2 tabs PO. On day 3 nurse may give repeat above order until residents constipation is resolved. Annual Influenza Vaccine (between Jul 05 and February 01): Yes Two-step PPD per [facility] [phone] or approved exception documents: Yes Treatments & Other Orders: Continue oral antibiotics as directed. Daily blood pressure for 1 week. Oxygen Orders: Maintain oxygen greater than 90% Medication Orders: PLEASE REFER TO THE DISCHARGE MEDICATION LIST. Insulin Orders?: No - Medications New Prescriptions: RX: Saccharomyces Boulardii [Florastor] 250 mg PO BIDWM #30 cap RX: levoFLOXacin [Levofloxacin] 750 mg PO DAILY 6 Days #6 tab - Diet Type: Geriatric Texture: Regular Liquids: Thin May have monthly special meal: Yes - Therapies | Activity Activity: Activity as Tolerated Assistance Devices: Walker Follow Up: Follow-up with PCP in 3-5 days."
--- NOTE | 2023-10-24 11:26 | DISCHARGE SUMMARY ---
Discharge Summary Discharge Date: 10/24/23 Discharging Provider: Ruddy Condition at Discharge: Good Discharge Disposition: SNF DC/Xfer Discharge Facility Name: [facility] - DIAGNOSES Discharge Diagnoses with Status of Each Condition: UTI - Continue levofloxacin Pneumonia - Continue levofloxacin Ovarian cysts - Outpatient pelvic US recommended. - HPI History of Present Illness: Ms Moseley is a 78 yo F with hx dementia, prior strokes. Resides at [facility]. History obtained from patient and chart review. Per report patient is baseline ambulatory with a walker and conversant/interactive, today she was weaker and confused and had a fever at the facility. Per report she has not had any cough or respiratory symptoms. No vomiting or diarrhea. Limited ROS, pt is limited historian due to underlying history of dem entia. She is currently on 1 L NC. She did have a dry cough during our video call. Chronic pain in L shoulder related to arthritis. Per report earlier there was concern for abdominal pain, patient denies at this time. - HOSPITAL COURSE Hospital Course: Patient is a 78-year-old female who presented to the ED due to acute encephalop athy and fever. Upon presentation to the ED she was noted to be hypoxic requiring 1 L of oxygen. Chest x-ray was performed which revealed evidence of an infectious or inflammatory process. She started on IV antibiotics with azithromycin and ceftriaxone which improved her symptoms significantly when she was weaned off of oxygen to 24 hours. Her urine culture returned positive for Klebsiella as well as Pseudomonas. She was transition to levofloxacin. Patient was subsequently discharged back to her nursing facility. Her CT scan did show evidence of bilateral renal cysts. A pelvic ultrasound was recommended by radiology which can be performed as an outpatient. - ALLERGIES Allergies/Adverse Reactions: Allergies Allergy/AdvReac Type Severity Reaction Status Date / Time codeine Allergy Nausea Verified 10/21/23 12:04 Penicillins Allergy Rash Verified 10/21/23 12:04 - MEDICATIONS Home Medications: Ambulatory Orders Medication Instructions Recorded Confirmed Albuterol Sulf [Ventolin Hfa 2 puffs INH Q6HR PRN 04/24/22 10/21/23 Inhaler] Bisacodyl Supp [Dulcolax Supp] 10 mg OH PRN PRN 04/24/22 10/21/23 Docusate Sodium 100Mg Capsule 100 mg PO Q12H 04/24/22 10/22/23 [Colace 100Mg Capsule] Duloxetine HCl [Cymbalta] 30 mg PO BID 04/24/22 10/21/23 Fexofenadine HCl [Allergy Relief] 60 mg PO Q12H 04/24/22 10/22/23 Fluticasone Furoate [Arnuity 1 puffs IH DAILY 04/24/22 10/21/23 Ellipta] Furosemide [Lasix] 40 mg PO .[id number] 04/24/22 10/21/23 Hydrocortisone 1% Cream 1 applic TOP Q6HR PRN 04/24/22 10/21/23 [Hydrocortisone] Metoprolol Succinate [Toprol Xl] 25 mg PO DAILY 04/24/22 10/21/23 Mineral Oil [Mineral Oil Enema] 1 ea RC PRN PRN 04/24/22 10/21/23 Montelukast Sodium 10 mg PO DAILY PM 04/24/22 10/21/23 Senna [Senokot] 2 tab PO PRN PRN 04/24/22 10/21/23 fentaNYL 12 MCG PATCH [Duragesic 1 each TD Q3D 6 Days #2 patch 04/25/22 10/21/23 12mcg patch] oxyCODONE [Roxicodone] 5 mg PO Q6H #25 tablet 04/25/22 10/21/23 polyethylene glycoL 3350(BULK) 17 gm PO DAILY PRN #1 bottle 04/25/22 10/21/23 [Miralax (Bulk)] Acetaminophen [Acetaminophen Extra 1,000 mg PO TID 10/21/23 10/21/23 Strength] Aspirin [[place] Aspirin] 81 mg PO DAILY 10/21/23 10/21/23 Azelastine HCl 2 spray NS BID 10/21/23 10/21/23 Diclofenac Sodium 1% Gel [Voltaren 2 gm TOP QID 10/21/23 10/21/23 Gel] Gabapentin [Neurontin] 300 mg PO HS 10/21/23 10/21/23 Ipratropium/Albuterol [Duoneb] 3 ml INH Q4H PRN 10/21/23 10/21/23 Melatonin 5 mg PO HS PRN 10/21/23 10/21/23 Naloxone HCl [Narcan] 4 mg NS ONCE PRN 10/21/23 10/21/23 Omeprazole 40 mg PO DAILY 10/21/23 10/21/23 fentaNYL [Fentanyl 25mcg patch] 1 each TD .Q72HR 10/21/23 10/21/23 Senna [Senokot] 8.6 mg PO Q24H PRN 10/22/23 10/22/23 guaiFENesin [Chest Congestion 10 ml PO Q4H PRN 10/22/23 10/22/23 Relief] Saccharomyces Boulardii [Florastor] 250 mg PO BIDWM #30 cap 10/24/23 levoFLOXacin [Levofloxacin] 750 mg PO DAILY 6 Days #6 tab 10/24/23 - PHYSICAL EXAM AT DISCHARGE General Appearance: positive: No acute distress, Alert Eyes Bilateral: positive: Normal inspection Respiratory: positive: Chest non-tender, No respiratory distress, Breath sounds nml Cardiovascular: positive: Regular rate & rhythm, No murmur, No gallop Abdomen: positive: Non-tender, No organomegaly - LABS Result Diagrams: 10/24/23 04:52 10/24/23 04:52 - SEPSIS Current Stage of Sepsis: Sepsis Possible source of Sepsis: Pulmonary, Genitourinary Sepsis Criteria: Recorded Temperature greater than 38.3C or Less than 36C, Recorded Heart Rate greater than 90 bpm, WBC count greater than 12,000 or less than 4000 - FOLLOW UP Follow Up: Follow-up with PCP in 3-5 days. Requires Pelvic US to evaluate ovarian cysts. - TIME SPENT Time Spent in Discharge (Minutes): 35
--- NOTE | 2023-10-24 12:15 | Discharge Plan ---
Discharge Plan for SNF / [facility] - Discharge Plan And Transition Orders Problem Reviewed?: Yes Disposition: 03 SNF DC/Xfer Condition: Good Allergies and Adverse Reactions: Allergies Allergy/AdvReac Type Severity Reaction Status Date / Time codeine Allergy Nausea Verified 10/21/23 12:04 Penicillins Allergy Rash Verified 10/21/23 12:04 - SNF / [facility] Transition Orders Medicare Certification Statement: I certify that Post Hospital fpc care is medically necessary on a continuing basis for any of the conditions for which she/he is receiving care during hospitalization. Notify PCP of admission and forward orders to primary provider for signature. Other Notification Orders: Call PCP immediately if patient develops dyspnea, chest pain/tightness or edema. Additional Bowel Program Orders: If no BM after 2 days, nurse may give M.O.M. 30ml PO PRN and/or ducolax Supp 1 NC and/or MARINA 250mg P.O., and/or senna 1-2 tabs PO. On day 3 nurse may give repeat above order until residents constipation is resolved. Treatments & Other Orders: Please follow up on CT abdomen/pelvis results with a pelvic US as an outpatient. Medication Orders: PLEASE REFER TO THE DISCHARGE MEDICATION LIST. - Medications New Prescriptions: Saccharomyces Boulardii [Florastor] 250 mg PO BIDWM #30 cap levoFLOXacin [Levofloxacin] 750 mg PO DAILY 6 Days #6 tab - Diet Type: Geriatric
[2023-10-24 13:43] VITALS: BP 159/86; O2SAT 94
== END 2023-10-24 14:03 | DRG 871 ==
LOC: EDUNIT# → ED 11:51 → MS2 22:50
PROVIDERS: ADMIT Student in an Organized Health Care Education/Training Program; ATTEND Family Medicine
DX: A41.9 Sepsis, unspecified organism (principal); J18.9 Pneumonia, unspecified organism; G93.40 Encephalopathy, unspecified; R53.1 Weakness; R41.82 Altered mental status, unspecified; Q61.02 Congenital multiple renal cysts; R10.9 Unspecified abdominal pain; N30.00 Acute cystitis without hematuria; N83.209 Unspecified ovarian cyst, unspecified side; F03.90 Unspecified dementia, unspecified severity, without behavioral disturbance, psychotic disturbance, mood disturbance, and anxiety; Z86.73 Personal history of transient ischemic attack (TIA), and cerebral infarction without residual deficits; Z20.822 Contact with and (suspected) exposure to COVID-19; G89.29 Other chronic pain; M19.012 Primary osteoarthritis, left shoulder; I10 Essential (primary) hypertension; Z66 Do not resuscitate; Z79.899 Other long term (current) drug therapy; Z79.82 Long term (current) use of aspirin; Z88.0 Allergy status to penicillin; Z88.5 Allergy status to narcotic agent; K59.00 Constipation, unspecified; B96.5 Pseudomonas (aeruginosa) (mallei) (pseudomallei) as the cause of diseases classified elsewhere
CPT/HCPCS: 36415; 71045; 74177; 80048; 80053; 81001; 83605; 83690; 83735; 85025; 85027; 87077; 87086; 87181; 87633; 99285; A9270; J1170; J1650; Q9967; 81003

== ENCOUNTER 2023-10-24 13:53 | Outpatient (CLI) | payer MEDICARE | END 2023-10-24 13:54 | LOC: EMS 13:53 | DX: N39.0 Urinary tract infection, site not specified (principal); J18.9 Pneumonia, unspecified organism; Z74.01 Bed confinement status | CPT/HCPCS: A0425; A0428 ==

== ENCOUNTER 2024-02-21 14:43 | Outpatient (CLI) | payer MEDICARE ==
--- NOTE | 2024-02-21 16:23 | XRAY Report ---
PROCEDURE: Chest 2V INDICATIONS: CHRONIC COUGH TECHNIQUE: 2 views of the chest were acquired. COMPARISON: 10/21/2023 FINDINGS: Surgical changes and devices: Clips are present overlying the upper left abdomen. Lungs and pleura: No pleural effusions or pneumothorax. Lungs are clear. Mediastinum: Mediastinal contours appear normal. Heart size is normal. Bones and chest wall: No suspicious bony lesions. Overlying soft tissues appear unremarkable. IMPRESSION: No acute cardiopulmonary process. Reviewed by: Cassidy Hugo MD on 02/21/2024 4:22 PM PDT Approved by: Cassidy Hugo MD on 02/21/2024 4:22 PM PDT Station ID: [id number]
== END 2024-02-21 14:44 | disposition home or self-care (01) ==
LOC: DI 14:43
PROVIDERS: ATTEND Registered Nurse
DX: R05.3 Chronic cough (principal)

== ENCOUNTER 2024-02-22 08:00 | Outpatient (CLI) | payer MEDICARE ==
[2024-02-22 16:13] LABS: BASOPHILS % (AUTO) 0.2 %; EOSINOPHILS # (AUTO) 0.2 10^3/uL (0.0-0.7); HCT - HEMATOCRIT 35.5 % (37.0-47.0); HGB - HEMOGLOBIN 11.1 g/dL (12.0-16.0); LYMPHOCYTES # (AUTO) 0.7 10^3/uL (1.5-3.5); LYMPHOCYTES % (AUTO) 7.8 %; MEAN CORPUSCULAR HEMOGLOBIN 30.2 pg (27.0-31.0); MEAN CORPUSCULAR HGB CONC 31.3 g/dL (32.0-36.0); MEAN CORPUSCULAR VOLUME 96.5 fL (81.0-99.0); MEAN PLATELET VOLUME 10.7 fL (7.9-10.8); MONOCYTES # (AUTO) 0.8 10^3/uL (0.0-1.0); MONOCYTES % (AUTO) 8.8 %; NEUTROPHILS # (AUTO) 6.9 10^3/uL (1.5-6.6); NEUTROPHILS % (AUTO) 80.3 %; PLT - PLATELET COUNT 203 10^3/uL (130-450); RED BLOOD COUNT 3.68 10^6/uL (4.20-5.40); RED CELL DISTRIBUTION WIDTH 12.9 % (12.0-15.0); WHITE BLOOD COUNT 8.6 x10^3/uL (4.8-10.8)
[2024-02-22 16:24] LABS: ALBUMIN 3.5 g/dL (3.2-5.5); ALBUMIN/GLOBULIN RATIO 1.4 (1.0-2.2); BILIRUBIN,TOTAL 0.5 mg/dL (0.2-1.0); CALCIUM 9.3 mg/dL (8.5-10.3); CREATININE 0.7 mg/dL (0.6-1.3); POTASSIUM 4.2 mmol/L (3.5-4.5)
== END 2024-02-22 23:59 | disposition home or self-care (01) ==
LOC: LAB.R 08:00
PROVIDERS: ATTEND Registered Nurse
DX: I10 Essential (primary) hypertension (principal); I48.20 Chronic atrial fibrillation, unspecified
CPT/HCPCS: 80053; 85025

== ENCOUNTER 2024-03-03 14:34 | Outpatient (CLI) | payer MEDICARE ==
[2024-03-03 14:56] LABS: ALBUMIN 3.6 g/dL (3.2-5.5); ALBUMIN/GLOBULIN RATIO 1.2 (1.0-2.2); BILIRUBIN,TOTAL 0.6 mg/dL (0.2-1.0); CALCIUM 9.4 mg/dL (8.5-10.3); CREATININE 0.9 mg/dL (0.6-1.3); TOTAL PROTEIN 6.5 g/dL (6.4-8.9)
== END 2024-03-03 14:35 | disposition home or self-care (01) ==
LOC: LAB.R 14:34
PROVIDERS: ATTEND Registered Nurse
DX: I10 Essential (primary) hypertension (principal)
CPT/HCPCS: 80053

== ENCOUNTER 2024-03-23 14:20 | Outpatient (CLI) | payer MEDICARE ==
[2024-03-23 14:27] LABS: BASOPHILS % (AUTO) 0.5 %; EOSINOPHILS # (AUTO) 0.2 10^3/uL (0.0-0.7); EOSINOPHILS % (AUTO) 2.7 %; HCT - HEMATOCRIT 38.5 % (37.0-47.0); HGB - HEMOGLOBIN 12.2 g/dL (12.0-16.0); LYMPHOCYTES # (AUTO) 1.2 10^3/uL (1.5-3.5); LYMPHOCYTES % (AUTO) 14.5 %; MEAN CORPUSCULAR HEMOGLOBIN 30.5 pg (27.0-31.0); MEAN CORPUSCULAR HGB CONC 31.7 g/dL (32.0-36.0); MEAN CORPUSCULAR VOLUME 96.3 fL (81.0-99.0); MONOCYTES # (AUTO) 0.6 10^3/uL (0.0-1.0); MONOCYTES % (AUTO) 6.9 %; NEUTROPHILS # (AUTO) 6.1 10^3/uL (1.5-6.6); NEUTROPHILS % (AUTO) 74.8 %; PLT - PLATELET COUNT 292 10^3/uL (130-450); RED CELL DISTRIBUTION WIDTH 13.3 % (12.0-15.0); WHITE BLOOD COUNT 8.1 x10^3/uL (4.8-10.8)
[2024-03-23 14:34] LABS: BILIRUBIN,URINE NEGATIVE (NEGATIVE); GLUCOSE, URINE (UA) NEGATIVE (NEGATIVE); KETONES,URINE (UA) NEGATIVE (NEGATIVE); LEUKOCYTE ESTERASE, URINE LARGE (NEGATIVE); NITRITE,URINE NEGATIVE (NEGATIVE); OCCULT BLOOD,URINE MODERATE (NEGATIVE); PROTEIN,URINE NEGATIVE (NEGATIVE); UROBILINOGEN,URINE 0.2 (NORMAL) E.U./dL (NORMAL)
[2024-03-23 14:35] LABS: CLARITY,URINE CLOUDY (CLEAR)
[2024-03-23 14:39] LABS: BACTERIA,URINE Few /HPF (None Seen); SQUAMOUS EPITHELIAL CELL,UR FEW Squamous (<= Few); WBC,URINE >25 /HPF (0-5)
[2024-03-23 14:44] LABS: ALBUMIN 3.4 g/dL (3.2-5.5); ALBUMIN/GLOBULIN RATIO 1.2 (1.0-2.2); BILIRUBIN,TOTAL 0.4 mg/dL (0.2-1.0); CALCIUM 9.5 mg/dL (8.5-10.3); CREATININE 0.7 mg/dL (0.6-1.3); POTASSIUM 3.8 mmol/L (3.5-4.5); TOTAL PROTEIN 6.3 g/dL (6.4-8.9)
== END 2024-03-23 14:21 | disposition home or self-care (01) ==
LOC: LAB.R 14:20
PROVIDERS: ATTEND Registered Nurse
DX: I10 Essential (primary) hypertension (principal); R30.0 Dysuria
CPT/HCPCS: 80053; 81001; 81003; 85025; 87077; 87086; 87181

== ENCOUNTER 2024-06-24 08:00 | Outpatient (CLI) | payer MEDICARE ==
[2024-06-24 20:02] LABS: BILIRUBIN,URINE NEGATIVE (NEGATIVE); GLUCOSE, URINE (UA) NEGATIVE (NEGATIVE); KETONES,URINE (UA) NEGATIVE (NEGATIVE); LEUKOCYTE ESTERASE, URINE NEGATIVE (NEGATIVE); NITRITE,URINE NEGATIVE (NEGATIVE); OCCULT BLOOD,URINE NEGATIVE (NEGATIVE); PROTEIN,URINE NEGATIVE (NEGATIVE); UROBILINOGEN,URINE 0.2 (NORMAL) E.U./dL (NORMAL)
[2024-06-24 20:20] LABS: BACTERIA,URINE None Seen /HPF (None Seen); CLARITY,URINE CLEAR (CLEAR); RBC,URINE 0-5 /HPF (0-5); SQUAMOUS EPITHELIAL CELL,UR NONE SEEN (<= Few); WBC,URINE 0-3 /HPF (0-5)
== END 2024-06-24 23:59 | disposition home or self-care (01) ==
LOC: LAB.R 08:00
PROVIDERS: ATTEND Family Medicine
DX: R52 Pain, unspecified (principal)
CPT/HCPCS: 81001; 87086

== ENCOUNTER 2024-07-28 08:00 | Outpatient (CLI) | payer MEDICARE ==
[2024-07-28 21:18] LABS: BASOPHILS % (AUTO) 0.7 %; EOSINOPHILS # (AUTO) 0.3 10^3/uL (0.0-0.7); HGB - HEMOGLOBIN 11.6 g/dL (12.0-16.0); LYMPHOCYTES # (AUTO) 1.3 10^3/uL (1.5-3.5); LYMPHOCYTES % (AUTO) 23.7 %; MEAN CORPUSCULAR HEMOGLOBIN 30.7 pg (27.0-31.0); MEAN CORPUSCULAR HGB CONC 31.4 g/dL (32.0-36.0); MEAN CORPUSCULAR VOLUME 97.9 fL (81.0-99.0); MEAN PLATELET VOLUME 10.7 fL (7.9-10.8); MONOCYTES # (AUTO) 0.5 10^3/uL (0.0-1.0); MONOCYTES % (AUTO) 8.5 %; NEUTROPHILS # (AUTO) 3.4 10^3/uL (1.5-6.6); NEUTROPHILS % (AUTO) 61.7 %; PLT - PLATELET COUNT 213 10^3/uL (130-450); RED BLOOD COUNT 3.78 10^6/uL (4.20-5.40); RED CELL DISTRIBUTION WIDTH 13.2 % (12.0-15.0); WHITE BLOOD COUNT 5.6 x10^3/uL (4.8-10.8)
[2024-07-28 21:24] LABS: BILIRUBIN,URINE NEGATIVE (NEGATIVE); GLUCOSE, URINE (UA) NEGATIVE (NEGATIVE); KETONES,URINE (UA) NEGATIVE (NEGATIVE); LEUKOCYTE ESTERASE, URINE LARGE (NEGATIVE); NITRITE,URINE NEGATIVE (NEGATIVE); OCCULT BLOOD,URINE NEGATIVE (NEGATIVE); PROTEIN,URINE NEGATIVE (NEGATIVE); UROBILINOGEN,URINE 1 (NORMAL) E.U./dL (NORMAL)
[2024-07-28 21:25] LABS: CLARITY,URINE SL (CLEAR)
[2024-07-28 21:31] LABS: CREATININE 0.6 mg/dL (0.6-1.3); POTASSIUM 4.2 mmol/L (3.5-4.5)
[2024-07-28 21:50] LABS: WBC CLUMPS,URINE PRESENT; WBC,URINE >25 /HPF (0-5)
[2024-07-28 21:53] LABS: BACTERIA,URINE Many /HPF (None Seen); RBC,URINE 0-5 /HPF (0-5); SQUAMOUS EPITHELIAL CELL,UR RARE Squamous (<= Few)
== END 2024-07-28 23:59 | disposition home or self-care (01) ==
LOC: LAB.R 08:00
PROVIDERS: ATTEND Family Medicine
DX: I48.20 Chronic atrial fibrillation, unspecified (principal); I10 Essential (primary) hypertension; N39.0 Urinary tract infection, site not specified
CPT/HCPCS: 80048; 81001; 81003; 85025; 87077; 87086; 87181